=== PATIENT | male | born 1945 | race Caucasian/White ===

== ENCOUNTER 2018-04-07 14:50 | Emergency (ER) | payer MEDICARE, SELFPAY ==
[2018-04-07 14:56] VITALS: BP 129/70; PULSE 89; RESP 20; TEMP 37.5; O2SAT 94
--- NOTE | 2018-04-07 15:19 | DI.RAD_ITS ---
SYMPTOMS/DIAGNOSIS: SHORTNESS OF BREATH, ? ACUTE DISEASE PA AND LATERAL CHEST: The lungs are free of infiltrate. There is no pleural effusion. The cardiovascular structures are intact. SUMMARY: No evidence of acute cardiopulmonary disease.
--- NOTE | 2018-04-07 17:20 | W.ED.GENAD ---
Discharge Plan Disposition Patient Disposition: HOME Condition: Stable Discharge Details Chief Complaint: RespSymp Clinical Impression: Acute bronchitis, Viral conjunctivitis Primary Care Provider: [place], [place] ED Provider: Shruthi Moss Home Meds and New Rx's Prescriptions: New prednisone 20 mg tablet 20 mg PO DIRECTED Qty: 12 RF: 0 doxycycline hyclate 100 mg tablet 100 mg PO BID 5 Days Qty: 10 RF: 0 Continued aspirin [Aspir-81] 81 MG tablet,delayed release (DR/EC) 81 mg PO HS RF: 0 trazodone 50 MG tablet 50 mg PO DAILY RF: 0 omeprazole 20 MG capsule,delayed release(DR/EC) 40 mg PO DAILY RF: 0 ipratropium-albuterol 3 ML solution for nebulization 1 inh Inhalation Q4H PRN PRNRF: 0 ipratropium-albuterol [Combivent Respimat] 120 PUFF mist 2 inh Inhalation Q4H PRN PRNRF: 0 losartan 50 MG tablet 100 mg PO DAILY Qty: 0 RF: 0 warfarin [Coumadin] 2 MG tablet 2 mg PO DIRECTED RF: 0 metoprolol succinate 100 MG tablet extended release 24 hr 100 mg PO DAILY RF: 0 diltiazem HCl 240 MG capsule,extended release 24hr 600 mg PO DAILY RF: 0 prednisone 20 MG tablet 60 mg PO DAILY 4 Days RF: 0 levofloxacin 750 MG tablet 750 mg PO DAILY Qty: 4 RF: 0 Discharge Instructions Instructions: Acute Bronchitis (ED), Conjunctivitis (ED) Additional Instructions: Use your ipratropium inhaler and nebulizers as directed. Take the steroids until finished. Follow-up with your primary care doctor in 1 week for recheck of your INR and for reevaluation. Return immediately to the emergency department any worsening or new concerning symptoms. Discharge Data Discharge Physician: Shruthi Moss Medical Decision Making 72yo M with a history of A. fib on Coumadin, asthma, COPD, diabetes, hypertension and IN who presents with sore throat, hoarse voice, cough with kelley and brown sputum, shortness of breath and chest congestion for the past few days. Patient states the chest congestion is bothering him the most. He denies any fevers. Chest x-ray ordered on arrival and negative. Upon my evaluation, patient appears nontoxic and in no acute distress. He is speaking in full sentences. He states that shortness of breath is much improved. O2 sat 94% on room air on arrival. He quit smoking 30 years ago. Will check PT/INR as patient is on Coumadin. Will give an albuterol neb treatment, p.o. steroids as well as check an EKG due to patient's age and history. Patient states he feels like his symptoms are all due to bronchitis and denies any specific chest pain and states is more congestion. He declines any additional workup any other additional labs. INR 1.8. EKG notes a rate of 83 in A. fib but no acute ST findings. Patient feels like he is breathing better after neb treatment but feels little shaky. Patient states he can usually not take albuterol due to side effects. Patient states he takes ipratropium inhaler and solution at home. Will send home with prescription for steroids. Patient also complained of bilateral eye tearing, clear discharge and irritation in eyes. No evidence of bacterial conjunctivitis. Appears consistent with likely viral conjunctivitis. Patient states he has an eye doctor he can follow-up with. Patient advised that his symptoms may be viral in nature including his conjunctivitis and respiratory symptoms. Although no evidence of pneumonia on x-ray, will send home with antibiotics if symptoms do not improve or worsen. He is instructed to follow-up with his primary care doctor for recheck of his INR this week and for reevaluation. He is instructed return here at any time if worse. Medical Records Medical records reviewed: Yes I reviewed the patient's medical records. Lab Data Lab results reviewed: Yes I reviewed the patient's lab results. Laboratory Tests Range/Units 04/07/18 17:25 PT (9.3-11.0) sec 18.2 H INR (0.9-1.1) 1.8 H ECG Data Attestation: I personally reviewed and interpreted this ECG (s) as follows: Interpretation: 1733 -- 83 bpm. Afib. T wave inversion in V6 which is been seen in previous. No acute ST elevation or depression. QTc 442. QRS 102. HPI General Mode of arrival: ambulatory. Date/Time Provider Initiated Documentation: 04/07/18 15:17. Limitations to Documentation: no limitations. Information obtained by: patient. HPI Narrative: Patient is a 72-year-old male with history of atrial fibrillation on Coumadin, asthma, COPD, diabetes, GERD, hypertension and IN with history of 3 cardiac stents who presents to the ED with complaint of sore throat, hoarse voice, dry itchy cough for the past few days. Admits to kelley and brown sputum, chest congestion. States he has been drinking but eating less due to decreased appetite and worsening cough with eating. He also admits to sore throat. He denies fever or leg swelling. He smoked for 30 years but quit smoking 30 years ago. He states his last INR was checked 2 weeks ago was 2.3. States his main complaint is the tickle in chest and chest congestion. Related Data Home Medications Medication Instructions Recorded Confirmed aspirin [Aspir-81] 81 mg PO HS 12/08/12 05/25/17 omeprazole 40 mg PO DAILY 12/08/12 05/25/17 trazodone 50 mg PO DAILY 12/08/12 05/25/17 ipratropium-albuterol 1 inh INHALATION Q4H PRN PRN 03/17/14 05/25/17 ipratropium-albuterol [Combivent 2 inh INHALATION Q4H PRN PRN 03/17/14 05/25/17 Respimat] losartan 100 mg PO DAILY #0 03/18/14 05/25/17 warfarin [Coumadin] 2 mg PO DIRECTED 01/03/17 05/25/17 diltiazem HCl 600 mg PO DAILY 05/25/17 05/25/17 levofloxacin 750 mg PO DAILY #4 tablet 05/25/17 metoprolol succinate 100 mg PO DAILY 05/25/17 05/25/17 prednisone 60 mg PO DAILY 4 Days tab 05/25/17 doxycycline hyclate 100 mg PO BID 5 Days #10 tab 04/07/18 prednisone 20 mg PO DIRECTED #12 tab 04/07/18 Previous Rx's Medication Instructions Recorded losartan 100 mg PO DAILY #0 03/18/14 levofloxacin 750 mg PO DAILY #4 tablet 05/25/17 prednisone 60 mg PO DAILY 4 Days tab 05/25/17 doxycycline hyclate 100 mg PO BID 5 Days #10 tab 04/07/18 prednisone 20 mg PO DIRECTED #12 tab 04/07/18 Allergies Allergy/AdvReac Type Severity Reaction Status Date / Time No Known Allergies Allergy Unverified 05/25/17 18:54 General Stated Complaint: RespSymp ABHILASH: 4 Review of Systems Review of Systems All systems reviewed & are unremarkable except as noted in HPI and below Constitutional Reports as per HPI, Denies chills and Denies fever(s) Eyes Denies blurry vision ENT Denies dizziness, Reports sore throat and Denies throat swelling Cardiovascular Denies chest pain and Reports dyspnea Respiratory Reports dyspnea Gastrointestinal Denies abdominal pain, Denies diarrhea and Denies vomiting Genitourinary Denies hematuria and Denies dysuria Musculoskeletal Denies back pain and Denies numbness Integumentary/Breasts Denies lesions and Denies rash Neurologic Denies dizziness and Denies numbness Allergic/Immunologic Denies throat swelling [facility] Medical History Asthma (Chronic) Atrial fibrillation (Chronic) CHF (congestive heart failure) (Chronic) COPD (chronic obstructive pulmonary disease) (Chronic) Diabetes (Chronic) GERD (gastroesophageal reflux disease) (Chronic) HTN (hypertension) (Chronic) Myocardial infarction (Chronic) Surgical History History of carpal tunnel release (Acute) History of coronary artery stent placement (Chronic) Social History Smoking/Tobacco Use Status: Former Tobacco Use alcohol intake: never substance use type: does not use Exam Const General: cooperative and healthy appearing Orientation: alert and awake [facility] Head: normal to inspection Ears: hearing grossly normal bilaterally, external ears normal and TM's normal bilaterally General nose exam: external nose normal Face and sinus: normal facial exam Mouth: oral mucosae normal Teeth and gingiva: dentition normal Throat: posterior oropharynx normal, uvula midline and no uvular edema Eyes General: appearance normal, both eyes and all related structures Eyelids: eyelids normal EOM: EOM intact bilaterally Neck Neck: normal visual inspection Lymphatic: no lymphadenopathy noted Chest Chest: normal inspection of the chest Resp Effort & Inspection: normal respiratory effort and able to speak in complete sentences Auscultation: diminished lung sounds bilaterally Cardio Rate: regular rate Rhythm: regular rhythm GI Inspection: normal to inspection Palpation: soft, not firm, no guarding, no hepatosplenomegaly, no masses and nontender Auscultation: normal bowel sounds Skin General skin exam: no rashes or lesions noted Neuro General: alert and awake Cognition: normal cognition Speech: speech normal Gait: normal gait Motor: muscle tone normal throughout Sensory Exam: no sensory deficits noted Extrem General: normal to inspection, full ROM, normal capillary refill and no edema Psych Appearance: grossly normal Mental Status: mental status grossly normal Speech and Movement: speech and movement normal Affect: normal affect Thought Process: normal Course Vital Signs Temperature 99.5 F 04/07/18 14:56 Pulse 89 04/07/18 14:56 Respiratory Rate 20 04/07/18 14:56 Blood Pressure 129/70 04/07/18 14:56 Pulse Oximetry 94 L 04/07/18 14:56 Temperature 99.5 F 04/07/18 14:56 Temperature Source Temporal Artery Scan 04/07/18 14:56 Pulse 89 04/07/18 14:56 Respiratory Rate 20 04/07/18 14:56 Respiratory Effort Non-Labored 04/07/18 14:58 Blood Pressure 129/70 04/07/18 14:56 Blood Pressure Position Sitting 04/07/18 14:56 Pulse Oximetry 94 L 04/07/18 14:56 Oxygen Delivery Method Room Air 04/07/18 14:56 Oxygen Flow Rate 0 04/07/18 14:56 Pain Level 0 04/07/18 14:56 Comment 04/07/18 14:56
[2018-04-07] MEDS: predniSONE 20 MG TAB 60 MG PO (17:27)
[2018-04-07] MEDS: Albuterol/Ipratropium 3 ML UPD VIAL UPD (17:27)
--- NOTE | 2018-04-07 17:29 | ED.GENADUL_ITS ---
Discharge Plan Disposition Patient Disposition: HOME Condition: Stable Discharge Details Chief Complaint: RespSymp Clinical Impression: Acute bronchitis, Viral conjunctivitis Primary Care Provider: [place], [place] ED Provider: Shruthi Moss Home Meds and New Rx's Prescriptions: New prednisone 20 mg tablet 20 mg PO DIRECTED Qty: 12 RF: 0 doxycycline hyclate 100 mg tablet 100 mg PO BID 5 Days Qty: 10 RF: 0 Continued aspirin [Aspir-81] 81 MG tablet,delayed release (DR/EC) 81 mg PO HS RF: 0 trazodone 50 MG tablet 50 mg PO DAILY RF: 0 omeprazole 20 MG capsule,delayed release(DR/EC) 40 mg PO DAILY RF: 0 ipratropium-albuterol 3 ML solution for nebulization 1 inh Inhalation Q4H PRN PRNRF: 0 ipratropium-albuterol [Combivent Respimat] 120 PUFF mist 2 inh Inhalation Q4H PRN PRNRF: 0 losartan 50 MG tablet 100 mg PO DAILY Qty: 0 RF: 0 warfarin [Coumadin] 2 MG tablet 2 mg PO DIRECTED RF: 0 metoprolol succinate 100 MG tablet extended release 24 hr 100 mg PO DAILY RF: 0 diltiazem HCl 240 MG capsule,extended release 24hr 600 mg PO DAILY RF: 0 prednisone 20 MG tablet 60 mg PO DAILY 4 Days RF: 0 levofloxacin 750 MG tablet 750 mg PO DAILY Qty: 4 RF: 0 Discharge Instructions Instructions: Acute Bronchitis (ED), Conjunctivitis (ED) Additional Instructions: Use your ipratropium inhaler and nebulizers as directed. Take the steroids until finished. Follow-up with your primary care doctor in 1 week for recheck of your INR and for reevaluation. Return immediately to the emergency department any worsening or new concerning symptoms. Discharge Data Discharge Physician: Shruthi Moss Medical Decision Making 72yo M with a history of A. fib on Coumadin, asthma, COPD, diabetes, hypertension and MS who presents with sore throat, hoarse voice, cough with kelley and brown sputum, shortness of breath and chest congestion for the past few days. Patient states the chest congestion is bothering him the most. He denies any fevers. Chest x-ray ordered on arrival and negative. Upon my evaluation, patient appears nontoxic and in no acute distress. He is speaking in full sentences. He states that shortness of breath is much improved. O2 sat 94% on room air on arrival. He quit smoking 30 years ago. Will check PT/INR as patient is on Coumadin. Will give an albuterol neb treatment, p.o. steroids as well as check an EKG due to patient's age and history. Patient states he feels like his symptoms are all due to bronchitis and denies any specific chest pain and states is more congestion. He declines any additional workup any other additional labs. INR 1.8. EKG notes a rate of 83 in A. fib but no acute ST findings. Patient feels like he is breathing better after neb treatment but feels little shaky. Patient states he can usually not take albuterol due to side effects. Patient states he takes ipratropium inhaler and solution at home. Will send home with prescription for steroids. Patient also complained of bilateral eye tearing, clear discharge and irritation in eyes. No evidence of bacterial conjunctivitis. Appears consistent with likely viral conjunctivitis. Patient states he has an eye doctor he can follow-up with. Patient advised that his symptoms may be viral in nature including his conjunctivitis and respiratory symptoms. Although no evidence of pneumonia on x-ray, will send home with antibiotics if symptoms do not improve or worsen. He is instructed to follow-up with his primary care doctor for recheck of his INR this week and for reevaluation. He is instructed return here at any time if worse. Medical Records Medical records reviewed: Yes I reviewed the patient's medical records. Lab Data Lab results reviewed: Yes I reviewed the patient's lab results. Laboratory Tests Range/Units 04/07/18 17:25 PT (9.3-11.0) sec 18.2 H INR (0.9-1.1) 1.8 H ECG Data Attestation: I personally reviewed and interpreted this ECG (s) as follows: Interpretation: 1733 -- 83 bpm. Afib. T wave inversion in V6 which is been seen in previous. No acute ST elevation or depression. QTc 442. QRS 102. HPI General Mode of arrival: ambulatory . Date/Time Provider Initiated Documentation: 04/07/18 15:17 . Limitations to Documentation: no limitations . Information obtained by: patient . HPI Narrative: Patient is a 72-year-old male with history of atrial fibrillation on Coumadin, asthma, COPD, diabetes, GERD, hypertension and MS with history of 3 cardiac stents who presents to the ED with complaint of sore throat, hoarse voice, dry itchy cough for the past few days. Admits to kelley and brown sputum, chest congestion. States he has been drinking but eating less due to decreased appetite and worsening cough with eating. He also admits to sore throat. He denies fever or leg swelling. He smoked for 30 years but quit smoking 30 years ago. He states his last INR was checked 2 weeks ago was 2.3. States his main complaint is the tickle in chest and chest congestion. Related Data Home Medications Medication Instructions Recorded Confirmed aspirin [Aspir-81] 81 mg PO HS 12/08/12 05/25/17 omeprazole 40 mg PO DAILY 12/08/12 05/25/17 trazodone 50 mg PO DAILY 12/08/12 05/25/17 ipratropium-albuterol 1 inh INHALATION Q4H PRN PRN 03/17/14 05/25/17 ipratropium-albuterol [Combivent 2 inh INHALATION Q4H PRN PRN 03/17/14 05/25/17 Respimat] losartan 100 mg PO DAILY #0 03/18/14 05/25/17 warfarin [Coumadin] 2 mg PO DIRECTED 01/03/17 05/25/17 diltiazem HCl 600 mg PO DAILY 05/25/17 05/25/17 levofloxacin 750 mg PO DAILY #4 tablet 05/25/17 metoprolol succinate 100 mg PO DAILY 05/25/17 05/25/17 prednisone 60 mg PO DAILY 4 Days tab 05/25/17 doxycycline hyclate 100 mg PO BID 5 Days #10 tab 04/07/18 prednisone 20 mg PO DIRECTED #12 tab 04/07/18 Previous Rx's Medication Instructions Recorded losartan 100 mg PO DAILY #0 03/18/14 levofloxacin 750 mg PO DAILY #4 tablet 05/25/17 prednisone 60 mg PO DAILY 4 Days tab 05/25/17 doxycycline hyclate 100 mg PO BID 5 Days #10 tab 04/07/18 prednisone 20 mg PO DIRECTED #12 tab 04/07/18 Allergies Allergy/AdvReac Type Severity Reaction Status Date / Time No Known Allergies Allergy Unverified 05/25/17 18:54 General Stated Complaint: RespSymp ABHILASH: 4 Review of Systems Review of Systems All systems reviewed & are unremarkable except as noted in HPI and below Constitutional Reports as per HPI, Denies chills and Denies fever(s) Eyes Denies blurry vision ENT Denies dizziness, Reports sore throat and Denies throat swelling Cardiovascular Denies chest pain and Reports dyspnea Respiratory Reports dyspnea Gastrointestinal Denies abdominal pain, Denies diarrhea and Denies vomiting Genitourinary Denies hematuria and Denies dysuria Musculoskeletal Denies back pain and Denies numbness Integumentary/Breasts Denies lesions and Denies rash Neurologic Denies dizziness and Denies numbness Allergic/Immunologic Denies throat swelling [facility] Medical History Asthma (Chronic) Atrial fibrillation (Chronic) CHF (congestive heart failure) (Chronic) COPD (chronic obstructive pulmonary disease) (Chronic) Diabetes (Chronic) GERD (gastroesophageal reflux disease) (Chronic) HTN (hypertension) (Chronic) Myocardial infarction (Chronic) Surgical History History of carpal tunnel release (Acute) History of coronary artery stent placement (Chronic) Social History Smoking/Tobacco Use Status: Former Tobacco Use alcohol intake: never substance use type: does not use Exam Const General: cooperative and healthy appearing Orientation: alert and awake [facility] Head: normal to inspection Ears: hearing grossly normal bilaterally, external ears normal and TM's normal bilaterally General nose exam: external nose normal Face and sinus: normal facial exam Mouth: oral mucosae normal Teeth and gingiva: dentition normal Throat: posterior oropharynx normal, uvula midline and no uvular edema Eyes General: appearance normal, both eyes and all related structures Eyelids: eyelids normal EOM: EOM intact bilaterally Neck Neck: normal visual inspection Lymphatic: no lymphadenopathy noted Chest Chest: normal inspection of the chest Resp Effort & Inspection: normal respiratory effort and able to speak in complete sentences Auscultation: diminished lung sounds bilaterally Cardio Rate: regular rate Rhythm: regular rhythm GI Inspection: normal to inspection Palpation: soft, not firm, no guarding, no hepatosplenomegaly, no masses and nontender Auscultation: normal bowel sounds Skin General skin exam: no rashes or lesions noted Neuro General: alert and awake Cognition: normal cognition Speech: speech normal Gait: normal gait Motor: muscle tone normal throughout Sensory Exam: no sensory deficits noted Extrem General: normal to inspection, full ROM, normal capillary refill and no edema Psych Appearance: grossly normal Mental Status: mental status grossly normal Speech and Movement: speech and movement normal Affect: normal affect Thought Process: normal Course Vital Signs Temperature 99.5 F 04/07/18 14:56 Pulse 89 04/07/18 14:56 Respiratory Rate 20 04/07/18 14:56 Blood Pressure 129/70 04/07/18 14:56 Pulse Oximetry 94 L 04/07/18 14:56 Temperature 99.5 F 04/07/18 14:56 Temperature Source Temporal Artery Scan 04/07/18 14:56 Pulse 89 04/07/18 14:56 Respiratory Rate 20 04/07/18 14:56 Respiratory Effort Non-Labored 04/07/18 14:58 Blood Pressure 129/70 04/07/18 14:56 Blood Pressure Position Sitting 04/07/18 14:56 Pulse Oximetry 94 L 04/07/18 14:56 Oxygen Delivery Method Room Air 04/07/18 14:56 Oxygen Flow Rate 0 04/07/18 14:56 Pain Level 0 04/07/18 14:56 Comment 04/07/18 14:56
[2018-04-07 18:03] LABS: INR 1.8 (0.9-1.1); Prothrombin Time 18.2 sec (9.3-11.0)
[2018-04-07 19:16] VITALS: BP 129/70; PULSE 89; RESP 20; TEMP 37.5; O2SAT 94
== END 2018-04-07 19:16 | disposition home or self-care (01) ==
PROVIDERS: Emergency Provider Physician Assistant
DX: J20.9 Acute bronchitis, unspecified (principal); J02.9 Acute pharyngitis, unspecified; I48.91 Unspecified atrial fibrillation; Z79.01 Long term (current) use of anticoagulants; J44.9 Chronic obstructive pulmonary disease, unspecified; Z87.891 Personal history of nicotine dependence; E11.9 Type 2 diabetes mellitus without complications; I10 Essential (primary) hypertension
CPT/HCPCS: 36415; 93005; 94640; 99284; 71046; 85610; 93010; 99285; J7512; J7620

== ENCOUNTER 2018-11-07 15:30 | Emergency (ER) | payer OTHER, MEDICARE, SELFPAY ==
[2018-11-07 15:32] VITALS: BP 150/77; PULSE 58; RESP 16; TEMP 36.3; O2SAT 98
--- NOTE | 2018-11-07 16:02 | DI.RAD_ITS ---
SYMPTOM/DIAGNOSIS: NEW INJURY VOLAR LEFT THUMB: Gauze is seen over the distal phalanx. No fracture or foreign body is identified.
--- NOTE | 2018-11-07 16:04 | W.ED.GENAD ---
Discharge Plan Disposition Patient Disposition: HOME Condition: Improving Discharge Details Chief Complaint: Laceration Clinical Impression: Laceration of left thumb Primary Care Provider: [facility] ED Provider: Randy Arellano Home Meds and New Rx's Prescriptions: Continued aspirin [Aspir-81] 81 MG tablet,delayed release (DR/EC) 81 mg PO HS RF: 0 trazodone 50 MG tablet 50 mg PO DAILY RF: 0 omeprazole 20 MG capsule,delayed release(DR/EC) 40 mg PO DAILY RF: 0 ipratropium-albuterol 3 ML solution for nebulization 1 inh Inhalation Q4H PRN PRNRF: 0 Combivent Respimat 120 PUFF mist 2 inh Inhalation Q4H PRN PRNRF: 0 losartan 50 MG tablet 100 mg PO DAILY Qty: 0 RF: 0 warfarin [Coumadin] 2 MG tablet 2 mg PO DIRECTED RF: 0 metoprolol succinate 100 MG tablet extended release 24 hr 100 mg PO DAILY RF: 0 diltiazem HCl 240 MG capsule,extended release 24hr 600 mg PO DAILY RF: 0 Discharge Instructions Instructions: Laceration (ED) Additional Instructions: We have asked our care management team to get you a follow-up appointment at the NH for 10 days time for both wound check and suture removal. Leave current dressing in place 72 hours, then may do gentle soap and water, pat dry, replace dressing. Continue regular medications. Return if you develop fever, redness, discharge from the wound or any other acute concerns. Medical Decision Making 72-year-old male who is right-handed, cut his left thumb on the volar surface using a table saw. His distal two-point discrimination is intact and motor function is within normal limits. Referred for x-ray to rule out foreign body or underlying bony injury. Tetanus status per NH is last 2010 and updated today. X-ray without evidence of acute injury or foreign body. The wound is not amenable to significant skin closure but sutures placed to improve wound edge apposition. 3 sutures placed. Patient wrapped in Xeroform gauze, [facility] and may follow-up in clinic, we will ask care management to assist in follow-up appointment in approximately 10 days for suture removal and wound check. HPI General Mode of arrival: ambulatory. Date/Time Provider Initiated Documentation: 11/07/18 15:37. Limitations to Documentation: no limitations. Information obtained by: patient. History of Present Illness 72 year old M presents to the emergency department with the chief complaint of Left hand injury with table saw, described as moderate, Quality is described as dull, and is localized to the left and upper extremity. Patient reports no radiation. Patient started experiencing this minute(s) and it has been constant. No relieving factors improve symptom(s), No exacerbating factors reported . Patient did receive the following treatments prior to arrival, none Related Data Home Medications Medication Instructions Recorded Confirmed aspirin [Aspir-81] 81 mg PO HS 12/08/12 11/07/18 omeprazole 40 mg PO DAILY 12/08/12 11/07/18 trazodone 50 mg PO DAILY 12/08/12 11/07/18 Combivent Respimat 2 inh INHALATION Q4H PRN PRN 03/17/14 11/07/18 ipratropium-albuterol 1 inh INHALATION Q4H PRN PRN 03/17/14 11/07/18 losartan 100 mg PO DAILY #0 03/18/14 11/07/18 warfarin [Coumadin] 2 mg PO DIRECTED 01/03/17 11/07/18 diltiazem HCl 600 mg PO DAILY 05/25/17 11/07/18 metoprolol succinate 100 mg PO DAILY 05/25/17 11/07/18 Previous Rx's Medication Instructions Recorded losartan 100 mg PO DAILY #0 03/18/14 Allergies Allergy/AdvReac Type Severity Reaction Status Date / Time iodine Allergy Mild Unverified 11/07/18 15:34 General Stated Complaint: Laceration ABHILASH: 4 Review of Systems Review of Systems Unsure of tetanus. No numbness or tingling. No weakness. No other injury. Recently well. 6 systems reviewed and otherwise negative [facility] Medical History Asthma (Chronic) Atrial fibrillation (Chronic) CHF (congestive heart failure) (Chronic) COPD (chronic obstructive pulmonary disease) (Chronic) Diabetes (Chronic) GERD (gastroesophageal reflux disease) (Chronic) HTN (hypertension) (Chronic) Myocardial infarction (Chronic) Surgical History History of carpal tunnel release (Acute) History of coronary artery stent placement (Chronic) Social History Smoking/Tobacco Use Status: Former Tobacco Use Alcohol Intake: never Drug use: Never Substance use type: does not use Do you feel safe in your relationship?: Yes Exam Narrative Exam Narrative: GEN: awake, alert, oriented 3. Pleasant, well groomed, interactive. HEAD: Normocephalic, atraumatic ENT: Mucous membranes moist, oropharynx unremarkable, External ear exam unremarkable EYES: PERRL, EOMI EXT: Full ROM, no edema, no rash. The volar aspect of the left distal thumb has an deep abrasion measuring approximately 1 x 3 cm. The edges are ragged but intact. The distal portion of the thumb volar surface is intact with two-point discrimination intact at approximately 8 mm. Thumb apposition flexion and extension are all within normal limits. Neuro: Grossly normal neurologic exam, conversant, interactive. Psych: Speech fluent, thoughts congruent, affect normal Course Vital Signs Temperature 36.3 C L 11/07/18 15:32 Pulse 58 L 11/07/18 15:32 Respiratory Rate 16 11/07/18 15:32 Blood Pressure 150/77 H 11/07/18 15:32 Pulse Oximetry 98 11/07/18 15:32 Temperature 36.3 C L 11/07/18 15:32 Temperature Source Skin 11/07/18 15:32 Pulse 58 L 11/07/18 15:32 Respiratory Rate 16 11/07/18 15:32 Blood Pressure 150/77 H 11/07/18 15:32 Blood Pressure Position Sitting 11/07/18 15:32 Pulse Oximetry 98 11/07/18 15:32 Procedures Laceration Laceration 1: Site: hand Side (If applicable): left Size (cm): 3 Description: irregular Depth: simple, single layer Local Anesthetic: Lidocaine 1% Pre-repair: wound explored and irrigated extensively Skin layer closed with: nylon Size (cm): 4-0 Number of sutures: 3 Technique: simple, interrupted
--- NOTE | 2018-11-07 16:27 | DI.VRAD_ITS ---
EXAM: XR Left Finger(s) EXAM DATE/TIME: 11/07/2018 4:03 PM CLINICAL HISTORY: 72 years old, male; Other: Saw injury volar TECHNIQUE: Imaging protocol: XR Left fingers. Views: Minimum 2 views. COMPARISON: No relevant prior studies available. FINDINGS: Bones/joints: Normal. Soft tissues: Normal. IMPRESSION: No acute findings. Dictated and Authenticated by: Byron Lewis MD. Ordering:GRETA Padilla MD
== END 2018-11-07 16:48 | disposition home or self-care (01) ==
LOC: ER 16:52
PROVIDERS: Emergency Provider Emergency Medicine
DX: S61.012A Laceration without foreign body of left thumb without damage to nail, initial encounter (principal); W31.2XXA Contact with powered woodworking and forming machines, initial encounter
CPT/HCPCS: 12002; 90471; 99283; 73140

== ENCOUNTER 2019-01-12 13:20 | Observation (INO) | payer OTHER, SELFPAY ==
[2019-01-12] VITALS (58 sets, daily range): BP systolic 110–154; BP diastolic 62–100; PULSE 37–78; RESP 10–26; TEMP 36.7–37; O2SAT 92–97
--- NOTE | 2019-01-12 13:43 | DI.RAD_ITS ---
EXAM: XR PORTABLE CHEST AP INDICATION: bradycardia, dizzy, r/o acute disease. COMPARISON: XR CHEST 2V PA LATERAL from 04/07/2018 TECHNIQUE: 2D digital imaging was performed. FINDINGS: The heart size is normal. Leads overlie the chest. There are linear areas of scarring or atelectas is seen in the lower lung kay. No pneumothorax, infiltrate or effusion is seen IMPRESSION: No acute abnormality.
--- NOTE | 2019-01-12 13:51 | ED.GENADUL_ITS ---
Discharge Plan Disposition Patient Disposition: [facility] INPATIENT Condition: Stable Discharge Details Chief Complaint: SOB Clinical Impression: Symptomatic bradycardia, History of atrial fibrillation Admit Date/Time: 01/12/19 15:23 Admit Provider: Triston Oden Attending Provider: Triston Oden Primary Care Provider: Yosvany Trejo ED Provider: Shruthi Moss Medical Decision Making 1330 -- 73yo M w/ a history of atrial fibrillation on Coumadin, COPD, CHF, GERD, diabetes, obesity, hypertension hyperlipidemia presents with shortness of breath, shakiness and dizziness for the past 3 weeks, worse today with exertion. Heart rate 30s to 40s on arrival. Pacer pads placed. BP within normal limits at 133/81. Patient denies any dizziness at present or any chest pain. He does admit to some shortness of breath. O2 sat 92% on room air, afebrile. Patient appears comfortable and in no acute respiratory distress. EKG on arrival notes a rate of 42, A. fib. There appears to be some P waves noticeable which raises concern for possible second or third-degree block, however fibrillatory waves make the presentation unclear. Heart rate noted to be in the occasional low 30s during my evaluation the patient appeared comfortable and in no acute distress. BP has remained stable. Concern for heart block/symptomatic bradycardia. Will call [facility] cardiology for consult likely transfer. Patient is followed at the [facility] as well so will call them for recommendations whether patient can go to other facilities for admission or transfer. 1410 -- d/w [facility] cardiology -agrees that the EKG is hard to interpret at this time as it could be A. fib at a slower rate. But considering patient likely needs to be on the diltiazem and metoprolol based on his cardiac disease, he may be appropriate for a pacemaker. Unfortunately they have no beds avail able now. Recommends calling house assembler convertible top here Dr. Sheldon for further discussion and possible admission. 1430 -- labs and imaging reviewed and unremarkable. INR 2.7. D-dimer 545 which is negative per age-adjusted cut off. Troponin negative. BNP 861. Chest x-ray negative. Discussed with the [facility] who stated that patient can likely be admitted anywhere as he is Medicare and be. They state they have no beds available and they do not place pacemakers at their facility. Awaiting callback from Dr. Sheldon. 1500 -- Case discussed with Dr. Sheldon - could be slow afib or tachy-ester syndrome. Agrees with plan for admission and can start with adjusting his medications but may need a pacemaker at some point. He could stay here but agrees with attempting [facility] for transfer. 1510 -- Case discussed with [facility] cardiology -no beds available. They do accept patient for transfer in the a.m. after reevaluation and discussion -accepting physician Dr. Carrion. 1515 -- Case discussed with hospitalist who accepts patient for admission. Medical Records Medical records reviewed: Yes I reviewed the patient's medical records. Imaging Data Radiologic Study: Radiologist's impression: XR PORTABLE CHEST AP INDICATION: bradycardia, dizzy, r/o acute disease. COMPARISON: XR CHEST 2V PA LATERAL from 04/07/2018 TECHNIQUE: 2D digital imaging was performed. FINDINGS: The heart size is normal. Leads overlie the chest. There are linear areas of scarring or atelectasis seen in the lower lung kay. No pneumothorax, infiltrate or effusion is seen IMPRESSION: No acute abnormality. Lab Data Lab results reviewed: Yes I reviewed the patient's lab results. Labs: Laboratory Tests Range/Units 01/12/19 01/12/19 01/12/19 13:31 13:31 13:31 WBC (4.4-10.8) k/cumm 9.13 RBC (4.50-6.00) m/cumm 4.84 Hgb (13.5-17.5) g/dL 14.4 Hct (40.0-50.0) % 43.3 MCV (80-95) fL 89.5 MCH (27.0-33.0) pg 29.8 MCHC (32.0-36.0) g/dL 33.3 RDW (11.8-14.1) % 13.6 Plt Count (130-400) x1000/uL 270 MPV (8.0-11.0) fL 10.7 Immature Gran % 0.3 Neutrophils % 72.8 Lymphocytes % 15.4 Monocytes % 9.7 Eosinophils % 1.6 Basophils % 0.2 Absolute Neutrophils (1.2-6.7) k/cumm 6.63 Absolute Lymphocytes (1.2-3.4) k/cumm 1.41 Absolute Monocytes (0.11-0.7) k/cumm 0.89 H Absolute Eosinophils (0.0-0.7) k/cumm 0.15 Absolute Basophils (0.0-0.2) k/cumm 0.02 PT (9.3-11.0) sec 26.5 H INR (0.9-1.1) 2.7 H APTT (21.0-31.4) sec 35.0 H D-Dimer (<500) ng/mlFEU 545 H Sodium (136-145) mmol/L 142 Potassium (3.5-5.1) mmol/L 4.6 Chloride (98-107) mmol/L 107 Carbon Dioxide (21.0-32.0) mmol/L 24.0 Anion Gap (3-11) mmol/L 11.0 BUN (7-18) mg/dL 26 H Creatinine (0.70-1.30) mg/dL 1.16 Estimated GFR/1.73 m2 (mL/min/1.73m2) >= 60.00 Glucose (70-100) mg/dL 164 H Calcium (8.5-10.1) mg/dL 9.0 Magnesium (1.8-2.4) mg/dL 1.9 Total Bilirubin (0.2-1.0) mg/dL 0.8 AST (15-37) U/L 18 ALT (16-63) U/L 37 Alkaline Phosphatase (46-116) U/L 80 Troponin I (0.00-0.06) ng/mL < 0.05 NT-Pro-B Natriuret Pep ( - 299) pg/mL Total Protein (6.4-8.2) g/dL 7.1 Albumin (3.4-5.0) g/dL 4.0 Range/Units 01/12/19 01/12/19 13:32 15:25 WBC (4.4-10.8) k/cumm RBC (4.50-6.00) m/cumm Hgb (13.5-17.5) g/dL Hct (40.0-50.0) % MCV (80-95) fL MCH (27.0-33.0) pg MCHC (32.0-36.0) g/dL RDW (11.8-14.1) % Plt Count (130-400) x1000/uL MPV (8.0-11.0) fL Immature Gran % Neutrophils % Lymphocytes % Monocytes % Eosinophils % Basophils % Absolute Neutrophils (1.2-6.7) k/cumm Absolute Lymphocytes (1.2-3.4) k/cumm Absolute Monocytes (0.11-0.7) k/cumm Absolute Eosinophils (0.0-0.7) k/cumm Absolute Basophils (0.0-0.2) k/cumm PT (9.3-11.0) sec Cancelled INR (0.9-1.1) Cancelled APTT (21.0-31.4) sec D-Dimer (<500) ng/mlFEU Sodium (136-145) mmol/L Potassium (3.5-5.1) mmol/L Chloride (98-107) mmol/L Carbon Dioxide (21.0-32.0) mmol/L Anion Gap (3-11) mmol/L BUN (7-18) mg/dL Creatinine (0.70-1.30) mg/dL Estimated GFR/1.73 m2 (mL/min/1.73m2) Glucose (70-100) mg/dL Calcium (8.5-10.1) mg/dL Magnesium (1.8-2.4) mg/dL Total Bilirubin (0.2-1.0) mg/dL AST (15-37) U/L ALT (16-63) U/L Alkaline Phosphatase (46-116) U/L Troponin I (0.00-0.06) ng/mL NT-Pro-B Natriuret Pep ( - 299) pg/mL 861 H Total Protein (6.4-8.2) g/dL Albumin (3.4-5.0) g/dL ECG Data Attestation: I personally reviewed and interpreted this ECG (s) as follows: Interpretation: Rate of 42, A. fib, some P waves noted mixed in with fibrillatory waves unclear if this is a second or third-degree block. QTc 354. QRS 100. No acute ST ischemic changes. HPI General Mode of arrival: ambulatory . Date/Time Provider Initiated Documentation: 01/12/19 13:30 . Limitations to Documentation: no limitations . Information obtained by: patient . HPI Narrative: Patient is a 73-year-old male with a history of asthma, atrial fibrillation on Coumadin, CHF, COPD, GERD, hypertension, SD and cardiac stent placement who presents for feeling of shakiness, dizziness, shortness of breath and low heart rate today. Patient states he has had the symptoms off and on for the past 3 weeks but worse today. He states symptoms are worse when he is up and walking around. He does admit to some improvement when he is resting. He states his heart rate is normally 60s to 80s and check creatinine was low today. He denies any headache, visual changes, chest pain, abdominal pain or recent illness. He states he was started on metformin 1 month ago and recently stopped this due to feelings of dizziness. He denies any other change in any of his medications. Related Data Home Medications Medication Instructions Recorded Confirmed aspirin [Aspir-81] 81 mg PO HS 12/08/12 01/12/19 omeprazole 40 mg PO DAILY 12/08/12 11/07/18 trazodone 50 mg PO DAILY 12/08/12 01/12/19 Combivent Respimat 2 inh INHALATION Q4H PRN PRN 03/17/14 01/12/19 ipratropium-albuterol 1 inh INHALATION Q4H PRN PRN 03/17/14 01/12/19 losartan 100 mg PO DAILY #0 03/18/14 01/12/19 warfarin [Coumadin] 2 mg PO DIRECTED 01/03/17 11/07/18 diltiazem HCl 600 mg PO DAILY 05/25/17 01/12/19 metoprolol succinate 100 mg PO DAILY 05/25/17 01/12/19 Previous Rx's Medication Instructions Recorded losartan 100 mg PO DAILY #0 03/18/14 Allergies Allergy/AdvReac Type Severity Reaction Status Date / Time iodine Allergy Mild Unverified 01/12/19 13:33 General Stated Complaint: SOB ABHILASH: 2 Review of Systems All systems reviewed & are unremarkable except as noted in HPI and below Constitutional Constitutional: Reports as per HPI, Denies chills and Denies fever(s) Eyes Eyes: Denies blurry vision ENT Ears, Nose, Mouth, and Throat: Reports dizziness, Denies sore throat and Denies throat swelling Cardiovascular Cardiovascular: Denies chest pain and Reports dyspnea Respiratory Respiratory: Denies cough and Reports dyspnea Gastrointestinal Gastrointestinal: Denies abdominal pain, Denies diarrhea and Denies vomiting Genitourinary Genitourinary: Denies hematuria and Denies dysuria Musculoskeletal Musculoskeletal: Denies back pain and Denies numbness Integumentary/Breasts Skin/Breast: Denies lesions and Denies rash Neurologic Neurologic: Reports dizziness, Denies focal weakness and Denies numbness Allergic/Immunologic Allergic/Immunologic: Denies throat swelling [facility] Medical History Asthma (Chronic) Atrial fibrillation (Chronic) CHF (congestive heart failure) (Chronic) COPD (chronic obstructive pulmonary disease) (Chronic) Diabetes (Chronic) GERD (gastroesophageal reflux disease) (Chronic) HTN (hypertension) (Chronic) Myocardial infarction (Chronic) Surgical History History of carpal tunnel release (Acute) History of coronary artery stent placement (Chronic) Social History Smoking/Tobacco Use Status: Former Tobacco Use Alcohol Intake: never Drug use: Never Substance use type: does not use Do you feel safe at home: Yes Do you feel safe in your relationship?: Yes Exam Const General: cooperative, healthy appearing and no acute distress HENMT Head: normal to inspection Face and sinus: normal facial exam Eyes General: appearance normal, both eyes and all related structures Pupils: PERRL EOM: EOM intact bilaterally Neck Neck: normal visual inspection and No submandibular swelling Lymphatic: no lymphadenopathy noted Chest Chest: normal inspection of the chest and no tenderness Resp Effort & Inspection: normal respiratory effort and able to speak in complete sentences Auscultation: clear to auscultation bilaterally Cardio Rate: bradycardic Rhythm: abnormal rhythm irregularly irregular GI Inspection: normal to inspection Palpation: soft, not firm, not rigid and nontender Auscultation: normal bowel sounds Skin General skin exam: no rashes or lesions noted Neuro General: alert, awake and oriented x3 Cranial Nerves: CN's II-XI intact bilaterally Cognition: normal cognition Speech: speech normal Motor: muscle tone normal throughout and strength 5/5 throughout Sensory Exam: no sensory deficits noted Extrem General: normal to inspection, full ROM, normal capillary refill, no calf tenderness bilaterally and no edema Psych Appearance: grossly normal Mental Status: mental status grossly normal Speech and Movement: speech and movement normal Affect: normal affect Course Vital Signs Vital signs: Vital Signs Temperature 98.6 F 01/12/19 13:27 Pulse 41 L 01/12/19 13:27 Respiratory Rate 16 01/12/19 13:27 Blood Pressure 133/81 01/12/19 13:27 Pulse Oximetry 93 L 01/12/19 13:27 Temperature 98.6 F 01/12/19 13:27 Temperature Source Skin 01/12/19 13:27 Pulse 43 L 01/12/19 13:46 Pulse 41 L 01/12/19 13:46 Respiratory Rate 12 01/12/19 13:46 Respiratory Effort 01/12/19 13:40 Respiratory Depth Normal 01/12/19 13:40 Respiratory Pattern Normal 01/12/19 13:40 Blood Pressure 117/67 01/12/19 13:46 Blood Pressure Mean 79 01/12/19 13:46 Blood Pressure Position Sitting 01/12/19 13:27 Pulse Oximetry 96 01/12/19 13:46 Oxygen Delivery Method Room Air 01/12/19 13:27 Oxygen Flow Rate 0 01/12/19 13:27 Pain Level 0 01/12/19 13:27
[2019-01-12 13:58] LABS: Abs Immature Grans 0.03 k/cumm (0.0-0.09); Absolute Basophil Count 0.02 k/cumm (0.0-0.2); Absolute Eosinophil Count 0.15 k/cumm (0.0-0.7); Absolute Lymphocyte Count 1.41 k/cumm (1.2-3.4); Absolute Monocyte Count 0.89 k/cumm (0.11-0.7); Absolute Neutrophil Count 6.63 k/cumm (1.2-6.7); Basophils % 0.2; Eosinophils % 1.6; HCT 43.3 % (40.0-50.0); HGB 14.4 g/dL (13.5-17.5); Immature Grans % 0.3; Lymphocytes % 15.4; Mean Corp. HGB Concentration 33.3 g/dL (32.0-36.0); Mean Corpuscular Hemoglobin 29.8 pg (27.0-33.0); Mean Corpuscular Volume 89.5 fL (80-95); Mean Platelet Volume 10.7 fL (8.0-11.0); Monocytes % 9.7; Neutrophils % 72.8; Platelet Count 270 x1000/uL (130-400); RBC 4.84 m/cumm (4.50-6.00); RBC Distribution Width 13.6 % (11.8-14.1); White Blood Cell Count 9.13 k/cumm (4.4-10.8)
[2019-01-12 14:14] LABS: ALT 37 U/L (16-63); AST 18 U/L (15-37); Alkaline Phosphatase 80 U/L (46-116); BUN 26 mg/dL (7-18); Bilirubin, Total 0.8 mg/dL (0.2-1.0); CREATININE 1.16 mg/dL (0.70-1.30); Chloride 107 mmol/L (98-107); Glucose 164 mg/dL (70-100); Magnesium 1.9 mg/dL (1.8-2.4); Potassium 4.6 mmol/L (3.5-5.1); Sodium 142 mmol/L (136-145); Total Protein 7.1 g/dL (6.4-8.2)
[2019-01-12 14:15] LABS: Troponin I < 0.05 ng/mL (0.00-0.06)
[2019-01-12 14:17] LABS: INR 2.7 (0.9-1.1); Prothrombin Time 26.5 sec (9.3-11.0)
[2019-01-12 14:32] LABS: NT-proBNP 861 pg/mL
[2019-01-12 14:33] LABS: D-Dimer 545 ng/mlFEU (<500)
[2019-01-12] MEDS: Normal Saline 500 ML IV (14:45)
--- NOTE | 2019-01-12 17:03 | W.PM.HP.N ---
Date of service: 01/12/19 Time of Service: 17:56 Assessment and Plan Assessment and plan (1) Bradycardia: Status: Acute Assessment and plan: Hx of atrial fibrillation, with prior history of RVR. Patient very likely requires relatively high dose or combination of different nikunj agents for successful rate control, but has become significantly bradycardic on this combination of long-acting metoprolol and diltiazem. He may in fact be a candidate for PPM to avoid bradycardia, with subsequent combination beta-dequan and calcium channel dequan therapy to achieve rate control. Cardiology had been contacted and agreed with this assessment, reportedly both at [facility] and the [facility] where he is tentatively accepted pending bed availability in the morning. -For tonight will hold long-acting Cardizem, and change metoprolol succinate to short acting formulation and titrate as able. Current heart rate has already improved and is in the 50s to 70s, well in the 60s at time of examination. Plan will be for titration tomorrow, followed by obtaining an echo to assess for any structural heart disease as there is no echo results available locally. Will maintain on the sort supervisor overnight, and monitor symptoms closely. Highly doubt ACS as ECG is nonischemic, and symptoms seem to match patient's heart rate?initial troponin also negative. Regardless will rule out with serial cardiac biomarkers as well. (2) H/O: GI bleed: Status: Chronic Assessment and plan: Apparent history of GI bleed while on anticoagulation with Coumadin. Will monitor INR carefully, and continue daily PPI and H2 dequan. (3) GERD (gastroesophageal reflux disease): Status: Chronic Assessment and plan: Treatment as above. (4) Obstructive sleep apnea: Status: Chronic Assessment and plan: Continue home CPAP. (5) Type II diabetes mellitus: Status: Chronic Assessment and plan: Initiate low-dose sliding scale coverage, ADA diet. (6) CAD (coronary artery disease): Status: Chronic Assessment and plan: Hx of CAD, with reported 2 stents to the LAD in 1998, and repeat stenting in 2003. ECG appears nonischemic, on initial troponin is negative. Will rule out with serial cardiac biomarkers as above, but doubt symptoms of GONZALES and fatigue are related to ACS. Continue low-dose BB, daily aspirin, and statin therapy. (7) COPD (chronic obstructive pulmonary disease): Status: Acute Assessment and plan: Appears quiescent. Continue duo nebs as needed. (8) DVT prophylaxis: Status: Acute Assessment and plan: Continue anticoagulation and monitor INR -currently therapeutic. (9) Advance directive on file: Status: Acute Assessment and plan: DNR/DNI per discussion at time of admission. Mr. Giraldo is okay with reversal of this for any procedures, including insertion of a PPM if needed. History of Present Illness History of Present Illness Chief Complaint: Fatigue Narrative: Very pleasant 73-year-old man with past medical history significant for A. fib, being admitted from [facility] emergency department with a diagnosis of bradycardia. Mr. Giraldo has past medical history significant for A. fib with previously reported RVR. His other history includes CAD, with 2 prior stents to the LAD 1998, restented in 2003. He also carries a diagnoses of DM, HTN, obesity, GERD, history of GI bleed on AC, insomnia, NOLA on CPAP, and COPD. He is [facility] cared [facility] at the [facility]. The patient reports a somewhat lengthy history of easy fatigability, ongoing for a number of months. However he also reports that over the past few weeks he has had worsening of the symptoms, along with dyspnea on exertion, tremors, and significant fatigue with minimal activity. When he took his vitals at home he noted rather low heart rate, and contacted his caregivers at the [facility] who instructed him to present to the nearest ED for evaluation. Work-up in the ED was remarkable for significant bradycardia with HR is in the 40s range, but remarkably with maintained blood pressures. Lab work was essentially unremarkable with the exception of a mildly elevated BNP at 861, and a troponin of less than 0.05. His EKG was difficult to interpret, but ultimately deemed to be atrial fibrillation with a slow ventricular response. Stress and was at that point referred for admission for further evaluation and treatment. Review of Systems All systems reviewed & are unremarkable except as noted in HPI and below [facility] Medical History Asthma (Chronic) Atrial fibrillation (Chronic) CHF (congestive heart failure) (Chronic) COPD (chronic obstructive pulmonary disease) (Chronic) Diabetes (Chronic) GERD (gastroesophageal reflux disease) (Chronic) HTN (hypertension) (Chronic) Myocardial infarction (Chronic) Surgical History History of carpal tunnel release (Acute) History of coronary artery stent placement (Chronic) Social History Smoking/Tobacco Use Status: Former Tobacco Use Alcohol Intake: never Drug use: Never Substance use type: does not use Do you feel safe at home: Yes Do you feel safe in your relationship?: Yes Meds Home Medications and Allergies Home Medications Medication Instructions Recorded Confirmed Type aspirin [Aspir-81] 81 mg PO HS 12/08/12 01/12/19 History omeprazole 40 mg PO DAILY 12/08/12 11/07/18 History trazodone 50 mg PO DAILY 12/08/12 01/12/19 History Combivent Respimat 2 inh INHALATION Q4H PRN PRN 03/17/14 01/12/19 History ipratropium-albuterol 1 inh INHALATION Q4H PRN PRN 03/17/14 01/12/19 History losartan 100 mg PO DAILY #0 03/18/14 01/12/19 Rx warfarin [Coumadin] 2 mg PO DIRECTED 01/03/17 11/07/18 History diltiazem HCl 600 mg PO DAILY 05/25/17 01/12/19 History metoprolol succinate 100 mg PO DAILY 05/25/17 01/12/19 History Allergies Allergy/AdvReac Type Severity Reaction Status Date / Time iodine Allergy Mild Unverified 01/12/19 13:33 Exam Narrative Exam Narrative: General: Patient appears comfortable, AAOX3, NAD Neck: Supple CV: Regular, Nonbradycardic at time of exam, somewhat distant heart sounds No rubs, murmurs, or gallops. Pulmonary: Clear to auscultation bilaterally, no crackles, wheezing, or rhonchi Abdomen: + Bowel Sounds, soft, nondistended but obese in contour. slight discomfort at site of recent umbilical hernia repair Vascular: +1 pitting b/l lower extremity edema Neurologic: CN II-XII grossly intact. No focal deficits. Psych: Normal mood and affect. Results Labs Result diagrams: 01/12/19 13:31 01/12/19 13:31 Labs: Laboratory Results - last 24 hr 01/12/19 01/12/19 01/12/19 13:31 13:31 13:31 WBC 9.13 RBC 4.84 Hgb 14.4 Hct 43.3 MCV 89.5 MCH 29.8 MCHC 33.3 RDW 13.6 Plt Count 270 MPV 10.7 Immature Gran % 0.3 Neutrophils % 72.8 Lymphocytes % 15.4 Monocytes % 9.7 Eosinophils % 1.6 Basophils % 0.2 Absolute Neutrophils 6.63 Absolute Lymphocytes 1.41 Absolute Monocytes 0.89 H Absolute Eosinophils 0.15 Absolute Basophils 0.02 PT 26.5 H INR 2.7 H APTT 35.0 H D-Dimer 545 H Sodium 142 Potassium 4.6 Chloride 107 Carbon Dioxide 24.0 Anion Gap 11.0 BUN 26 H Creatinine 1.16 Estimated GFR/1.73 m2 >= 60.00 Glucose 164 H Calcium 9.0 Magnesium 1.9 Total Bilirubin 0.8 AST 18 ALT 37 Alkaline Phosphatase 80 Troponin I < 0.05 NT-Pro-B Natriuret Pep Total Protein 7.1 Albumin 4.0 01/12/19 01/12/19 13:32 15:25 WBC RBC Hgb Hct MCV MCH MCHC RDW Plt Count MPV Immature Gran % Neutrophils % Lymphocytes % Monocytes % Eosinophils % Basophils % Absolute Neutrophils Absolute Lymphocytes Absolute Monocytes Absolute Eosinophils Absolute Basophils PT Cancelled INR Cancelled APTT D-Dimer Sodium Potassium Chloride Carbon Dioxide Anion Gap BUN Creatinine Estimated GFR/1.73 m2 Glucose Calcium Magnesium Total Bilirubin AST ALT Alkaline Phosphatase Troponin I NT-Pro-B Natriuret Pep 861 H Total Protein Albumin Last Vital Signs Temp 37 C 01/12/19 13:27 Pulse 59 L 01/12/19 16:16 Resp 18 01/12/19 16:16 BP 130/81 01/12/19 16:16 Pulse Ox 97 01/12/19 16:16
[2019-01-12] MEDS: Simvastatin 40 MG TAB 80 MG PO (20:15)
[2019-01-12] MEDS: Metoprolol 25 MG TAB PO (20:15)
[2019-01-12 21:41] LABS: Troponin I < 0.05 ng/mL (0.00-0.06)
[2019-01-12] MEDS: Aspirin E.C. 81 MG TABEC PO (21:47)
[2019-01-13] VITALS (22 sets, daily range): BP systolic 139–157; BP diastolic 85–102; PULSE 57–96; RESP 1–27; TEMP 36.4–36.8; O2SAT 93–96
[2019-01-13] MEDS: Albuterol/Ipratropium 3 ML UPD VIAL IH ×3 (00:03→17:10)
[2019-01-13] MEDS: Metoprolol 25 MG TAB PO (04:00)
--- NOTE | 2019-01-13 05:17 | NUR.NOTE ---
CLarified code status with patient due to conflicting information. pt would prefer to be a FUll Code and not a DNR/DNI pt states in his own words, I would like you to do everything that you can to bring me back. continued with brief discussion about setting up advanced directives for further information in regards to selective measures if desired.
[2019-01-13 06:22] LABS: Anion Gap 7.2 mmol/L (3-11); BUN 18 mg/dL (7-18); CO2 27.8 mmol/L (21.0-32.0); CREATININE 0.94 mg/dL (0.70-1.30); Calcium 8.8 mg/dL (8.5-10.1); Chloride 107 mmol/L (98-107); Glucose 136 mg/dL (70-100); Magnesium 1.8 mg/dL (1.8-2.4); Potassium 4.3 mmol/L (3.5-5.1); Sodium 142 mmol/L (136-145)
[2019-01-13 06:25] LABS: INR 2.2 (0.9-1.1); Prothrombin Time 22.1 sec (9.3-11.0)
[2019-01-13 06:31] LABS: Troponin I < 0.05 ng/mL (0.00-0.06)
[2019-01-13] MEDS: Omeprazole 20 MG CAPCR 40 MG PO (07:45)
--- NOTE | 2019-01-13 07:50 | PDOC.CMIN ---
- If Service Date Differs Date of service: 01/13/19 Time of Service: 07:50 Care Management Initial Assess REASON FOR HOSPITALIZATION:: Bradycardia PAST MEDICAL HISTORY/PAST SURGICAL HISTORY:: Medical History . Asthma (Chronic). Atrial fibrillation (Chronic). CHF (congestive heart failure) (Chronic). COPD (chronic obstructive pulmonary disease) (Chronic). Diabetes (Chronic). GERD (gastroesophageal reflux disease) (Chronic). HTN (hypertension) (Chronic). Myocardial infarction (Chronic). Surgical History . History of carpal tunnel release (Acute). History of coronary artery stent placement (Chronic) PREVIOUS FUNCTIONAL STATUS/SOCIAL/FAMILY SUPPORTS:: Hong lives in [place] with his Zahraa. CURRENT FUNCTIONAL STATUS:: Anthony was sitting up in bed visiting with his during CM visit. He stated that had just been told that [facility] had a bed and transfer was offered. He and his decided to accept the transfer since they have been dealing with his afib and erratic heart rates for a long time.He will be transported by ambulance this evening. ADVANCE DIRECTIVES:: None on file Has patient been provided with information about the portal?: No Did the patient sign up for the portal?: No CODE STATUS:: DNR/DNI INSURANCE COVERAGE / FINANCIAL ISSUES:: Medicare PRIMARY CARE PHYSICIAN:: Yosvany Trejo POTENTIAL DISCHARGE NEEDS:: Follow up with PCP and Cardiology. Possible transfer to tertiary care facility. PATIENT/FAMILY EDUCATION NEEDS:: Discharge plan, limitations, follow up plan, Ask me Three. TRANSPORTATION:: via ambulance to [facility] to be arranged by nursing tipple supervisor. PLAN:: Anthony will be transferred to [facility] for follow up of his atrial fibrillation and for evaluation re: pacemaker.Ambulance to transport will be coordinated by nursing tipple supervisor. Final discharge plan to be determoned by [facility] providers.
[2019-01-13] MEDS: Losartan 50 MG TAB 100 MG PO (09:01)
[2019-01-13] MEDS: Insulin Aspart 300 UNITS/3 ML PEN SC ×2 (09:02→11:51)
[2019-01-13] MEDS: Magnesium Oxide 400 MG TAB PO (10:32)
--- NOTE | 2019-01-13 11:26 | W.PM.PROGNOT ---
Date of Service Date of service: 01/13/19 Time of Service: 11:26 Assessment and Plan Assessment and plan (1) Bradycardia: Status: Acute Assessment and plan: Hx of atrial fibrillation, with prior history of RVR and self-reported difficult to control HRs in the past. Patient very likely requires relatively high dose or combination of different nikunj agents for successful rate control, but has become significantly bradycardic on this combination of long-acting metoprolol and diltiazem. He may in fact be a candidate for PPM to avoid bradycardia, with subsequent combination beta-dequan and calcium channel dequan therapy to achieve rate control. Cardiology had been contacted and agreed with this assessment, reportedly both at [facility] and the [facility] where he is tentatively accepted pending bed availability. -Current HR appears improved, but starting to elevate off long-acting Cardizem and metoprolol succinate. Will begin titration now, and initiate low dose short-acting Cardizem, and continue to monitor closely. ECHO ordered and pending to assess for any structural heart disease as there is no echo results available locally. Will continue to maintain on the monitor worker, and monitor symptoms closely. Highly doubt ACS as ECG is nonischemic, and serial troponins negative. (2) H/O: GI bleed: Status: Chronic Assessment and plan: Apparent history of GI bleed while on anticoagulation with Coumadin. Will monitor INR carefully, and continue daily PPI and H2 dequan. - Current Hgb normal. (3) GERD (gastroesophageal reflux disease): Status: Chronic Assessment and plan: Treatment as above. (4) Obstructive sleep apnea: Status: Chronic Assessment and plan: Continue home CPAP. (5) Type II diabetes mellitus: Status: Chronic Assessment and plan: Continue low-dose sliding scale coverage, ADA diet. Blood sugars currently in the 100's. (6) CAD (coronary artery disease): Status: Chronic Assessment and plan: Hx of CAD, with reported 2 stents to the LAD in 1998, and repeat stenting in 2003. Admission ECG nonischemic, and serial troponins negative. Continue short-acting BB, daily aspirin, and statin therapy. (7) COPD (chronic obstructive pulmonary disease): Status: Acute Assessment and plan: Appears quiescent. Continue duo nebs as needed. (8) DVT prophylaxis: Status: Acute Assessment and plan: Continue anticoagulation and monitor daily INR -currently therapeutic. (9) Advance directive on file: Status: Acute Assessment and plan: Full Code per repeat discussion this morning. Subjective Subjective Interval history since last seen: Pleasant 73-year-old man with past medical history significant for AFib, admitted from [facility] Emergency Department on 01/12 with a diagnosis of symptomatic Bradycardia. Mr. Giraldo has past medical history significant for AFib with previously reported RVR, on chronic anticoagulation with Coumadin. His other history includes CAD, with 2 prior stents to the LAD 1998, restented in 2003. He also carries a diagnoses of DM, HTN, obesity, GERD, history of GI bleed on AC, insomnia, NOLA on CPAP, and COPD. He is [facility] cared [facility] at the [facility]. The patient reports a somewhat lengthy history of easy fatigability, ongoing for a number of months. However he also reports that over the past few weeks he has had worsening of the symptoms, along with GONZALES, tremors, and significant fatigue with minimal activity. When he took his vitals at home he noted rather low heart rate, and contacted his caregivers at the [facility] who instructed him to present to the nearest ED for evaluation. Work-up in the ED was remarkable for significant bradycardia with HR is in the 40s range, but remarkably with maintained blood pressures. Lab work was essentially unremarkable with the exception of a mildly elevated BNP at 861, and a troponin of less than 0.05. His EKG was difficult to interpret, but ultimately deemed to be atrial fibrillation with a slow ventricular response. The patient was at that point referred for admission for further evaluation and treatment. This morning Mr. Giraldo appears to be doing well. His HR is no longer bradycardic and well controlled in the 60-80's mostly, but is increasing to the 90's with minimal exertion. His serial cardiac biomarkers remained undetectable. No overnight events reported. Remains afebrile. Exam Narrative Exam Narrative: General: Patient appears comfortable, AAOX3, NAD Neck: Supple CV: Irregular, Nonbradycardic at time of exam, somewhat distant heart sounds No rubs, murmurs, or gallops. Pulmonary: Clear to auscultation bilaterally, no crackles, wheezing, or rhonchi Abdomen: + Bowel Sounds, soft, nondistended but obese in contour. slight discomfort at site of recent umbilical hernia repair Vascular: +1 pitting b/l lower extremity edema Psych: Normal mood and affect. Objective Objective Clinical Data: Abnormal lab results 01/12/19 01/12/19 01/12/19 Range/Units 13:31 13:31 13:31 Absolute Monocytes 0.89 H (0.11-0.7) k/cumm PT 26.5 H (9.3-11.0) sec INR 2.7 H (0.9-1.1) APTT 35.0 H (21.0-31.4) sec D-Dimer 545 H (<500) ng/mlFEU BUN 26 H (7-18) mg/dL Glucose 164 H (70-100) mg/dL NT-Pro-B Natriuret Pep ( - 299) pg/mL 01/12/19 01/13/19 01/13/19 Range/Units 13:32 05:50 05:50 Absolute Monocytes (0.11-0.7) k/cumm PT 22.1 H (9.3-11.0) sec INR 2.2 H (0.9-1.1) APTT (21.0-31.4) sec D-Dimer (<500) ng/mlFEU BUN (7-18) mg/dL Glucose 136 H (70-100) mg/dL NT-Pro-B Natriuret Pep 861 H ( - 299) pg/mL Vital Signs Temperature 36.8 C 01/13/19 07:40 Temperature Source Temporal Artery Scan 01/13/19 07:40 Pulse 70 01/13/19 07:49 Pulse Rhythm Irregular 01/13/19 07:40 Pulse 82 01/13/19 08:00 Respiratory Rate 15 01/13/19 08:00 Respiratory Effort Non-Labored 01/13/19 07:40 Respiratory Depth Normal 01/13/19 07:40 Respiratory Pattern Normal 01/13/19 07:40 Blood Pressure 154/95 H 01/13/19 07:49 Blood Pressure Mean 109 01/13/19 07:49 Blood Pressure Position Sitting 01/12/19 17:36 Pulse Oximetry 94 L 01/13/19 10:29 Oxygen Delivery Method Room Air 01/13/19 10:29 Oxygen Flow Rate 0 01/13/19 10:29 Pain Level 0 01/13/19 07:40 Intake & Output 01/12/19 01/12/19 01/13/19 11:59 23:59 11:59 Intake Total 740 / 740 480 / 480 Output Total 950 / 950 1375 / 1375 Balance -210 / -210 -895 / -895 Weight 98.2 kg 92.9 kg Intake: IV 500 / 500 Oral 240 / 240 480 / 480 Output: Urine 950 / 950 1375 / 1375 Other: Urine Color Yellow Yellow Urine Appearance Clear Clear Comment skinny urine stream per patient. Voiding Methods Urinal Urinal Laboratory Results WBC 9.13 k/cumm (4.4-10.8) 01/12/19 13:31 RBC 4.84 m/cumm (4.50-6.00) 01/12/19 13:31 Hgb 14.4 g/dL (13.5-17.5) 01/12/19 13:31 Hct 43.3 % (40.0-50.0) 01/12/19 13:31 MCV 89.5 fL (80-95) 01/12/19 13:31 MCH 29.8 pg (27.0-33.0) 01/12/19 13:31 MCHC 33.3 g/dL (32.0-36.0) 01/12/19 13:31 RDW 13.6 % (11.8-14.1) 01/12/19 13:31 Plt Count 270 x1000/uL (130-400) 01/12/19 13:31 MPV 10.7 fL (8.0-11.0) 01/12/19 13:31 Immature Gran % 0.3 01/12/19 13:31 Neutrophils % 72.8 01/12/19 13:31 Lymphocytes % 15.4 01/12/19 13:31 Monocytes % 9.7 01/12/19 13:31 Eosinophils % 1.6 01/12/19 13:31 Basophils % 0.2 01/12/19 13:31 Absolute Neutrophils 6.63 k/cumm (1.2-6.7) 01/12/19 13:31 Absolute Lymphocytes 1.41 k/cumm (1.2-3.4) 01/12/19 13:31 Absolute Monocytes 0.89 k/cumm (0.11-0.7) H 01/12/19 13:31 Absolute Eosinophils 0.15 k/cumm (0.0-0.7) 01/12/19 13:31 Absolute Basophils 0.02 k/cumm (0.0-0.2) 01/12/19 13:31 PT 22.1 sec (9.3-11.0) H 01/13/19 05:50 INR 2.2 (0.9-1.1) H 01/13/19 05:50 APTT 35.0 sec (21.0-31.4) H 01/12/19 13:31 D-Dimer 545 ng/mlFEU (<500) H 01/12/19 13:31 Sodium 142 mmol/L (136-145) 01/13/19 05:50 Potassium 4.3 mmol/L (3.5-5.1) 01/13/19 05:50 Chloride 107 mmol/L (98-107) 01/13/19 05:50 Carbon Dioxide 27.8 mmol/L (21.0-32.0) 01/13/19 05:50 Anion Gap 7.2 mmol/L (3-11) 01/13/19 05:50 BUN 18 mg/dL (7-18) D 01/13/19 05:50 Creatinine 0.94 mg/dL (0.70-1.30) 01/13/19 05:50 Estimated GFR/1.73 m2 >= 60.00 (mL/min/1.73m2) 01/13/19 05:50 Glucose 136 mg/dL (70-100) H 01/13/19 05:50 Calcium 8.8 mg/dL (8.5-10.1) 01/13/19 05:50 Magnesium 1.8 mg/dL (1.8-2.4) 01/13/19 05:50 Total Bilirubin 0.8 mg/dL (0.2-1.0) 01/12/19 13:31 AST 18 U/L (15-37) 01/12/19 13:31 ALT 37 U/L (16-63) 01/12/19 13:31 Alkaline Phosphatase 80 U/L (46-116) 01/12/19 13:31 Troponin I < 0.05 ng/mL (0.00-0.06) 01/13/19 05:50 NT-Pro-B Natriuret Pep 861 pg/mL (-299) H 01/12/19 13:32 Total Protein 7.1 g/dL (6.4-8.2) 01/12/19 13:31 Albumin 4.0 g/dL (3.4-5.0) 01/12/19 13:31
[2019-01-13] MEDS: Metoprolol 12.5 MG TAB 37.5 MG PO (11:50)
--- NOTE | 2019-01-13 13:00 | DI.US_ITS ---
APPROVED REPORT Conclusion Left Ventricle : The left ventricle is normal size. The left ventricular ejection fraction is within the normal range. LVEF is 50-54%. There is normal LV segmental wall motion. Diastolic function is i ndeterminant. Right Ventricle : The right ventricle is normal size. The right ventricular systolic function is norm al. Atria : The left atrium is dilated. The right atrium size is normal. Aortic Valve : The aortic valve is normal in structure. Aortic valve is trileaflet. There is no aorti c valvular stenosis. No aortic regurgitation is present. Mitral Valve : There is mitral annular calcification. No evidence of mitral valve stenosis. Mild mitr al regurgitation. Tricuspid Valve : The tricuspid valve is normal in structure. Mild tricuspid regurgitation. Pulmonic Valve : Pulmonic valve is not well visualized. Great Vessels : IVC is normal in size and collapses >50% with inspiration. There is no prior echocardiogram available for comparison. EXAM: Comprehensive 2D, Doppler, and color-flow Echocardiogram [facility]: Felicia Gallagher [facility] ([facility]) Indications: CAD, A FIB Left Ventricle The left ventricle is normal size. The left ventricular ejection fraction is within the normal range. There is normal left ventricular wall thickness. The posterior wall thickness is increased. The sept um is normal. There is normal LV segmental wall motion. Diastolic function is indeterminant. LVEF is 50-54%. Right Ventricle The right ventricle is normal size. The right ventricular systolic function is normal. Atria The left atrium is dilated. The right atrium size is normal. The interatrial septum is intact with no evidence for an atrial septal defect. Aortic Valve The aortic valve is normal in structure. Aortic valve is trileaflet. There is no aortic valvular sten osis. No aortic regurgitation is present. Mitral Valve There is mitral annular calcification. No evidence of mitral valve stenosis. Mild mitral regurgitatio n. Tricuspid Valve The tricuspid valve is normal in structure. There is no tricuspid valve stenosis. Mild tricuspid regu rgitation. Pulmonic Valve Pulmonic valve is not well visualized. There is no pulmonic valvular stenosis. Great Vessels The aortic root is normal in size. Aortic arch is not well visualized. The ascending aorta is normal in size. IVC is normal in size and collapses >50% with inspiration. Pericardium There is no pericardial effusion. 2D Dimensions IVSd 1.03 cm M: 0.6-1.2 LV EDV A2C 107.29 mL PWd 1.03 cm M: 0.6 - 1.2 LV EDV A4C 130.69 mL LVDd 4.91 cm M: 4.2 - 5.9 LA Volume Index A2C 49.98 mL/m2 LVDs 3.54 cm M: 2.5 - 4.0 LA Volume Index A4C 37.17 mL/m2 Aortic Root 3.35 cm M: 3.1 - 3.7 LA Volume Index Biplane 44.25 mL/m2 Left Atrium 4.04 cm M: 3.0 - 4.0 LA Area A4C 23.74 cm2 RA Area A4C 22.73 cm2 LA Area A2C 28.25 cm2 LVOT 1.91 cm (M/F) 1.5-2.5 LA/Aortic Root Ratio 0.83 Ascending Aorta 2.77 cm M: 2.6 - 3.4 EF AP4 58.18 % LVEF (Teich) 54.07 % EF AP2 47.84 % LVEF (Silva's) 52.76 % M: 52 - 72 EF BP 52.76 % FS 28.02 % LV Diastology E Decel Time 250.00 (160-240 msec) E/A Ratio 2.5 Aortic Valve LVOT Area 2.85 cm2 LVOT Peak Gregory. 0.93 m/s LVOT Mean Gregory. 0.58 m/s LVOT Peak Gr. 3.45 mmHg LVOT Mean Gr. 1.64 mmHg LVOT VTI 0.18 m AoV Peak Gregory. 1.24 (0.5-1.3 m/s) AoV Mean Gregory. 0.90 m/s AO Peak GR. 6.17 mmHg AO Mean GR. 3.48 (<5 mmHg) AO VTI 0.25 (0.18-0.25 m) ASHOK (VTI) 2.05 (2.5-4.5 cm2) ASHOK (VTI) Index 0.96 cm/m2 Mitral Valve MV E Max Gregory. 1.04 (0.4-1.3 m/s) MVA VTI 2.07 (4.0-6.0 cm2) MV A Velocity 0.42 (0.4-1.3 m/s) E/A Ratio 2.46 MV Decel. Time 250.28 (160-240 msec) MV Peak Gr. 97.53 mmHg MV PHT 72.58 msec MVA PHT 3.03 cm2 Pulmonary Valve PV Peak Velocity 0.93 (0.5-1.5 m/s) Tricuspid Valve TR P. Velocity 2.64 m/s TV Regurg Vmax 2.64 m/s TR P. Gradient 27.88 mmHg
--- NOTE | 2019-01-13 14:26 | PHARADMIT ---
Admission Pharmacy Clinical Review symptomatic bradycardia Code Status Full Code Current Weight 92.9 kg Renally Cleared and Narrow Therapeutic Index Meds Crcl ~78.8 mL/min using adjusted body weight current meds okay QTc Value / Action Taken QTc 354 BP Control, Fever BP 139/94 afebrile Electrolytes reviewed within normal limits DVT Prophylaxis pt is on warfarin Opiate Usage / Scheduled Bowel Regimen Ordered no/prn Plt/SCr for Heparin / Enoxaparin plt 270 SCr 0.94 INR for Warfarin INR 2.2 H/H stable, WBC/Bands h/h 14.4/43.3 WBC 9.13 Antibiotic appropriateness none Cultures and Sensitivities none Surgical ABX d/c within 24 hr n/a DM control / Insulin Dosing BG 136 sliding scale aspart ordered Heart Failure (Check EF%) (TORI's, B-Block, Diuretics) diltiazem, losartan, metoprolol, IV to PO Switch n/a Home Meds Reviewed -combivent inhaler and duonebs PRN -avoid concurrent use of simvastatin and diltiazem when possible, if used together avoid simvastatin doses greater than 10 mg/day and diltiazem doses greater than 240 mg/day and monitor closely for signs of simvastatin toxicity (rhabdomyolysis, myositis) -aspirin may enhance the anticoagulant effect of warfarin, monitor for bleeding Home Meds Not Ordered combivent (has duonebs ordered), montelukast Comments ECHO today watch INR, BP and HR
--- NOTE | 2019-01-13 15:39 | CHAPLAIN ---
I visited with Mehul and his . His granddaughter, an [employer] employee in [facility], was with them as well. Mehul said he is waiting to see if medication changes will work, or if he will need a pacemaker. Either way, God is good, he said. He is a member of the [employer] and the restorationism is aware that he is here. His nephew is an elder there.
[2019-01-13] MEDS: dilTIAZem 30 MG TAB PO (16:06)
--- NOTE | 2019-01-13 17:05 | CMDISCH_ITS ---
- If Service Date Differs Date of service: 01/13/19 Time of Service: 17:05 LACE Index Scoring Tool - Questions: Length of Stay (in days): 1 Acuity (Admit via E.D.?): Yes Comorbidities: Previous M.I., Diabetes w/o Complication, Congestive Heart Failure, Chronic Pulmonary Disease E.D. 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 Final discharge plan to be determoned by [facility] providers. Patient/Family Education Needs: Final discharge plan, limitations and follow up. Services Needed at Discharge: Transportation
== END 2019-01-13 17:20 ==
LOC: ER 16:21 → ICU 01-13 09:48
PROVIDERS: Admitting Provider Internal Medicine; Emergency Provider Physician Assistant; PCP Surgery Vascular Surgery; Visit Provider Internal Medicine
DX: R00.1 Bradycardia, unspecified (principal); I48.91 Unspecified atrial fibrillation; Z87.19 Personal history of other diseases of the digestive system; K21.9 Gastro-esophageal reflux disease without esophagitis; G47.33 Obstructive sleep apnea (adult) (pediatric); E11.9 Type 2 diabetes mellitus without complications; I25.10 Atherosclerotic heart disease of native coronary artery without angina pectoris; Z95.5 Presence of coronary angioplasty implant and graft; J44.9 Chronic obstructive pulmonary disease, unspecified; Z79.01 Long term (current) use of anticoagulants
CPT/HCPCS: 36415; 80048; 80053; 93005; 93306; 96360; 99222; 99233; 99285; 71045; 83735; 83880; 84484; 85025; 85379; 85610; 85730; 93010; 99217; 99219; G0378; J3490; J7620

== ENCOUNTER 2019-07-09 12:57 | Emergency (ER) | payer MEDICARE, SELFPAY ==
[2019-07-09 13:00] VITALS: BP 145/73; PULSE 73; TEMP 36.9; O2SAT 94
--- NOTE | 2019-07-09 13:14 | W.ED.GENAD ---
Discharge Plan Disposition Patient Disposition: HOME Condition: Improving Discharge Details Chief Complaint: Laceration Clinical Impression: Laceration of left little finger Primary Care Provider: Yosvany Trejo ED Provider: Randy Arellano Home Meds and New Rx's Prescriptions: New cephalexin 500 mg capsule 500 mg PO TID 3 Days Qty: 9 RF: 0 No Action aspirin [Aspir-81] 81 MG tablet,delayed release (DR/EC) 81 mg PO HS RF: 0 trazodone 50 MG tablet 50 mg PO DAILY RF: 0 omeprazole 20 MG capsule,delayed release(DR/EC) 40 mg PO DAILY RF: 0 ipratropium-albuterol 3 ML solution for nebulization 1 inh Inhalation Q4H PRN PRNRF: 0 Combivent Respimat 120 PUFF mist 2 inh Inhalation Q4H PRN PRNRF: 0 losartan 50 MG tablet 100 mg PO DAILY Qty: 0 RF: 0 warfarin [Coumadin] 2 MG tablet 2 mg PO DIRECTED RF: 0 metoprolol succinate 100 MG tablet extended release 24 hr 100 mg PO DAILY RF: 0 diltiazem HCl 240 MG capsule,extended release 24hr 360 mg PO DAILY RF: 0 simvastatin 80 mg Tablet 80 mg PO QHS RF: 0 montelukast 10 mg Tablet 10 mg PO DAILY RF: 0 Discharge Instructions Instructions: Finger Laceration (ED) Additional Instructions: Leave wound dressing in place for 72 hours, then may gently remove, gently irrigate and pat dry, replace dressing. As the wound is an avulsion, anticipate that it will take approximately 2 weeks to heal. Take Keflex as prescribed for 3 days time. Return to develop a fever, foul-smelling discharge from the wound, or any other acute concern. Medical Decision Making 73-year-old man who avulsed the distal portion of his left fifth/pinky finger on a table saw. There is no significant laceration, there is no tissue to be repaired. The nailbed germinal matrix is intact. Wound was irrigated and cleansed, I personally dressed the wound at the bedside and advised the patient on home management. I would consider this inherently dirty wound and will place him on 72 hours of Keflex. He is stable and improved. HPI General Mode of arrival: ambulatory. Date/Time Provider Initiated Documentation: 07/09/19 12:59. Limitations to Documentation: no limitations. Information obtained by: patient. History of Present Illness 73 year old M presents to the emergency department with the chief complaint of Left fifth digit tablesaw injury, described as mild, Quality is described as dull and constant, and is localized to the left and upper extremity. Patient reports no radiation. Patient started experiencing this minute(s) and it has been constant. No relieving factors improve symptom(s), No exacerbating factors reported . Patient notes other (Pressure applied at the scene, states that his tetanus is up-to-date.). Related Data Home Medications Medication Instructions Recorded Confirmed aspirin [Aspir-81] 81 mg PO HS 12/08/12 01/12/19 omeprazole 40 mg PO DAILY 12/08/12 01/12/19 trazodone 50 mg PO DAILY 12/08/12 01/12/19 Combivent Respimat 2 inh INHALATION Q4H PRN PRN 03/17/14 01/12/19 ipratropium-albuterol 1 inh INHALATION Q4H PRN PRN 03/17/14 01/12/19 losartan 100 mg PO DAILY #0 03/18/14 01/12/19 warfarin [Coumadin] 2 mg PO DIRECTED 01/03/17 11/07/18 diltiazem HCl 360 mg PO DAILY 05/25/17 01/12/19 metoprolol succinate 100 mg PO DAILY 05/25/17 01/12/19 montelukast 10 mg PO DAILY 01/12/19 01/12/19 simvastatin 80 mg PO QHS 01/12/19 01/12/19 cephalexin 500 mg PO TID 3 Days #9 cap 07/09/19 Previous Rx's Medication Instructions Recorded losartan 100 mg PO DAILY #0 03/18/14 cephalexin 500 mg PO TID 3 Days #9 cap 07/09/19 Allergies Allergy/AdvReac Type Severity Reaction Status Date / Time iodine Allergy Mild Unverified 07/09/19 13:03 General Stated Complaint: Laceration ABHILASH: 4 Review of Systems Narrative: No other injury. [facility] Medical History Asthma (Chronic) Atrial fibrillation (Chronic) CHF (congestive heart failure) (Chronic) COPD (chronic obstructive pulmonary disease) (Chronic) Diabetes (Chronic) GERD (gastroesophageal reflux disease) (Chronic) HTN (hypertension) (Chronic) Myocardial infarction (Chronic) Social History Smoking/Tobacco Use Status: Former Tobacco Use Alcohol Intake: never Drug use: Never Substance use type: does not use Do you feel safe at home: Yes Do you feel safe in your relationship?: Yes Exam Narrative Exam Narrative: GEN: awake, alert, oriented 3. Pleasant, well groomed, interactive. HEAD: Normocephalic, atraumatic ENT: Mucous membranes moist, External ear exam unremarkable EYES: PERRL, EOMI EXT: Full ROM, no edema, no rash. The left fifth digit has a avulsion to the dorsal distal ulnar aspect of the finger distal to the germinal matrix of the nail bed. The volar pad is not involved. Sensation is intact. No foreign body seen, no bony exposure Neuro: Grossly normal neurologic exam, conversant, interactive. Psych: Speech fluent, thoughts congruent, affect normal Course Vital Signs Vital signs: Vital Signs Temperature 36.9 C 07/09/19 13:00 Pulse 73 07/09/19 13:00 Blood Pressure 145/73 H 07/09/19 13:00 Pulse Oximetry 94 L 07/09/19 13:00 Temperature 36.9 C 07/09/19 13:00 Temperature Source Tympanic 07/09/19 13:00 Pulse 73 07/09/19 13:00 Blood Pressure 145/73 H 07/09/19 13:00 Blood Pressure Position Sitting 07/09/19 13:00 Pulse Oximetry 94 L 07/09/19 13:00 Oxygen Delivery Method Room Air 07/09/19 13:00 Oxygen Flow Rate 0 07/09/19 13:00 Pain Level 7 07/09/19 13:00
== END 2019-07-09 13:25 | disposition home or self-care (01) ==
PROVIDERS: Emergency Provider Emergency Medicine; PCP Surgery Vascular Surgery
DX: S61.217A Laceration without foreign body of left little finger without damage to nail, initial encounter (principal); W31.2XXA Contact with powered woodworking and forming machines, initial encounter; Z79.01 Long term (current) use of anticoagulants; I11.0 Hypertensive heart disease with heart failure; E11.9 Type 2 diabetes mellitus without complications; I50.9 Heart failure, unspecified; J44.9 Chronic obstructive pulmonary disease, unspecified
CPT/HCPCS: 99283

== ENCOUNTER 2019-07-09 18:44 | Emergency (ER) | payer MEDICARE, SELFPAY ==
[2019-07-09 18:55] VITALS: BP 124/76; PULSE 67; RESP 18; TEMP 36.6; O2SAT 91
--- NOTE | 2019-07-09 19:10 | ED.GENADUL_ITS ---
Discharge Plan Disposition Patient Disposition: HOME Condition: Stable Discharge Details Chief Complaint: Laceration Clinical Impression: Visit for wound check Primary Care Provider: Yosvany Trejo ED Provider: Randy Arellano Home Meds and New Rx's Prescriptions: Continued aspirin [Aspir-81] 81 MG tablet,delayed release (DR/EC) 81 mg PO HS RF: 0 trazodone 50 MG tablet 50 mg PO DAILY RF: 0 omeprazole 20 MG capsule,delayed release(DR/EC) 40 mg PO DAILY RF: 0 ipratropium-albuterol 3 ML solution for nebulization 1 inh Inhalation Q4H PRN PRNRF: 0 Combivent Respimat 120 PUFF mist 2 inh Inhalation Q4H PRN PRNRF: 0 losartan 50 MG tablet 100 mg PO DAILY Qty: 0 RF: 0 warfarin [Coumadin] 2 MG tablet 2 mg PO DIRECTED RF: 0 metoprolol succinate 100 MG tablet extended release 24 hr 100 mg PO DAILY RF: 0 diltiazem HCl 240 MG capsule,extended release 24hr 360 mg PO DAILY RF: 0 simvastatin 80 mg Tablet 80 mg PO QHS RF: 0 montelukast 10 mg Tablet 10 mg PO DAILY RF: 0 cephalexin 500 mg capsule 500 mg PO TID 3 Days Qty: 9 RF: 0 Discharge Instructions Additional Instructions: Leave current dressing in place 3 to 4 days time, then may remove with gentle application of warm water, pat dry and replace dressing. Continue your regular medications. Return for any acute concern. Medical Decision Making 73-year-old male on warfarin who suffered an avulsion to the distal portion of his left fifth finger earlier today. He was seen by me and dressed. He subsequently awoke from a nap and found wound was oozing blood through the dressing for which she sought reevaluation this evening. The wound was taken down cleansed, Gelfoam was placed and dressing replaced. This was successful and cessation of bleeding. Discussed with him home management as well as indications for reevaluation. Stable and improved at this time. HPI General Mode of arrival: ambulatory . Date/Time Provider Initiated Documentation: 07/09/19 18:45 . Limitations to Documentation: no limitations . Information obtained by: patient . History of Present Illness 73 year old M presents to the emergency department with the chief complaint of Seen earlier for finger laceration/avulsion that is now bleeding through , described as mild, Quality is described as constant, and is localized to the left and upper extremity. Patient reports no radiation. and it has been constant. No relieving factors improve symptom(s), No exacerbating factors reported . Patient notes no other symptoms.. Patient did receive the following treatments prior to arrival, none Related Data Home Medications Medication Instructions Recorded Confirmed aspirin [Aspir-81] 81 mg PO HS 12/08/12 07/09/19 omeprazole 40 mg PO DAILY 12/08/12 07/09/19 trazodone 50 mg PO DAILY 12/08/12 07/09/19 Combivent Respimat 2 inh INHALATION Q4H PRN PRN 03/17/14 07/09/19 ipratropium-albuterol 1 inh INHALATION Q4H PRN PRN 03/17/14 07/09/19 losartan 100 mg PO DAILY #0 03/18/14 07/09/19 warfarin [Coumadin] 2 mg PO DIRECTED 01/03/17 07/09/19 diltiazem HCl 360 mg PO DAILY 05/25/17 07/09/19 metoprolol succinate 100 mg PO DAILY 05/25/17 07/09/19 montelukast 10 mg PO DAILY 01/12/19 07/09/19 simvastatin 80 mg PO QHS 01/12/19 07/09/19 cephalexin 500 mg PO TID 3 Days #9 cap 07/09/19 07/09/19 Previous Rx's Medication Instructions Recorded losartan 100 mg PO DAILY #0 03/18/14 cephalexin 500 mg PO TID 3 Days #9 cap 07/09/19 Allergies Allergy/AdvReac Type Severity Reaction Status Date / Time iodine Allergy Mild Unverified 07/09/19 18:57 General Stated Complaint: Laceration ABHILASH: 4 Review of Systems Narrative: Patient denies other complaint. [facility] Medical History Asthma (Chronic) Atrial fibrillation (Chronic) CHF (congestive heart failure) (Chronic) COPD (chronic obstructive pulmonary disease) (Chronic) Diabetes (Chronic) GERD (gastroesophageal reflux disease) (Chronic) HTN (hypertension) (Chronic) Myocardial infarction (Chronic) Social History Smoking/Tobacco Use Status: Former Tobacco Use Alcohol Intake: never Drug use: Never Substance use type: does not use Do you feel safe at home: Yes Do you feel safe in your relationship?: Yes Exam Narrative Exam Narrative: GEN: awake, alert, oriented 3. Pleasant, well groomed, interactive. HEAD: Normocephalic, atraumatic Extremity: Dressing on left fifth digit is bloody. Removed and there is persistent area of avulsion to the distal ulnar dorsal aspect of the left fifth digit with preservation of the germinal matrix of the nail bed as well as the volar surface. Neuro: Grossly normal neurologic exam, conversant, interactive. Psych: Speech fluent, thoughts congruent, affect normal Course Vital Signs Vital signs: Vital Signs Temperature 36.6 C 07/09/19 18:55 Pulse 67 07/09/19 18:55 Respiratory Rate 18 07/09/19 18:55 Blood Pressure 124/76 07/09/19 18:55 Pulse Oximetry 91 L 07/09/19 18:55 Temperature 36.6 C 07/09/19 18:55 Temperature Source Skin 07/09/19 18:55 Pulse 67 07/09/19 18:55 Respiratory Rate 18 07/09/19 18:55 Respiratory Effort Non-Labored 07/09/19 18:57 Blood Pressure 124/76 07/09/19 18:55 Blood Pressure Position Sitting 07/09/19 18:55 Pulse Oximetry 91 L 07/09/19 18:55 Oxygen Delivery Method Room Air 07/09/19 18:55 Oxygen Flow Rate 0 07/09/19 18:55 Pain Level 0 07/09/19 18:55
[2019-07-09 19:20] VITALS: BP 124/76; PULSE 67; RESP 18; TEMP 36.6; O2SAT 91
== END 2019-07-09 19:25 | disposition home or self-care (01) ==
PROVIDERS: Emergency Provider Emergency Medicine; PCP Surgery Vascular Surgery
DX: T81.30XA Disruption of wound, unspecified, initial encounter (principal); S61.217D Laceration without foreign body of left little finger without damage to nail, subsequent encounter; W31.2XXD Contact with powered woodworking and forming machines, subsequent encounter; I48.91 Unspecified atrial fibrillation; Z79.01 Long term (current) use of anticoagulants; E11.9 Type 2 diabetes mellitus without complications; I50.9 Heart failure, unspecified; Z44.9 Encounter for fitting and adjustment of unspecified external prosthetic device; Z48.00 Encounter for change or removal of nonsurgical wound dressing
CPT/HCPCS: 99281; 99283; L3650

== ENCOUNTER 2019-07-09 22:36 | Emergency (ER) | payer MEDICARE, SELFPAY ==
[2019-07-09 22:41] VITALS: BP 140/77; PULSE 66; RESP 20; TEMP 36.7; O2SAT 94
--- NOTE | 2019-07-09 22:48 | W.ED.GENAD ---
Discharge Plan Disposition Patient Disposition: HOME Condition: Stable Discharge Details Chief Complaint: Recheck Clinical Impression: Visit for wound check Primary Care Provider: Yosvany Trejo ED Provider: Byron Baez Home Meds and New Rx's Prescriptions: Continued aspirin [Aspir-81] 81 MG tablet,delayed release (DR/EC) 81 mg PO HS RF: 0 trazodone 50 MG tablet 50 mg PO DAILY RF: 0 omeprazole 20 MG capsule,delayed release(DR/EC) 40 mg PO DAILY RF: 0 ipratropium-albuterol 3 ML solution for nebulization 1 inh Inhalation Q4H PRN PRNRF: 0 Combivent Respimat 120 PUFF mist 2 inh Inhalation Q4H PRN PRNRF: 0 losartan 50 MG tablet 100 mg PO DAILY Qty: 0 RF: 0 warfarin [Coumadin] 2 MG tablet 2 mg PO DIRECTED RF: 0 metoprolol succinate 100 MG tablet extended release 24 hr 100 mg PO DAILY RF: 0 diltiazem HCl 240 MG capsule,extended release 24hr 360 mg PO DAILY RF: 0 simvastatin 80 mg Tablet 80 mg PO QHS RF: 0 montelukast 10 mg Tablet 10 mg PO DAILY RF: 0 cephalexin 500 mg capsule 500 mg PO TID 3 Days Qty: 9 RF: 0 Discharge Instructions Additional Instructions: as best you can try not to hit or touch the finger if bleeding resumes and you are unable to control the bleeding return to the emergency department Medical Decision Making 73 yo male with afib on coumadin comes in with bleeding from left pinky wound. Earlier today avulses side of his left distal pinky, seen in ED and d/c'd and had bleeding so returned and had it wrapped and d/c'd again. States it started bleeding again and does have blood soaked gauze on. This was removed and has about 1cm avulsion without a laceration. intact senastion and pulses, full rom of the finger. Placed finger in a finger tourniquet and will plcae gauze soaked in txa on it for 10 minutes and reassess. placed dermabond on woud and removed finger tourniquet and no further bleeding, will d/c home Differential Diagnosis Differential Diagnosis: lac, abrasion HPI General Mode of arrival: ambulatory. Date/Time Provider Initiated Documentation: 07/09/19 22:37. Limitations to Documentation: no limitations. Information obtained by: patient. History of Present Illness 73 year old M presents to the emergency department with the chief complaint of left pinky wound bleeding, described as moderate, Patient started experiencing this hour(s) (1) and it has been constant. No relieving factors improve symptom(s), No exacerbating factors reported . Patient did receive the following treatments prior to arrival, none Related Data Home Medications Medication Instructions Recorded Confirmed aspirin [Aspir-81] 81 mg PO HS 12/08/12 07/09/19 omeprazole 40 mg PO DAILY 12/08/12 07/09/19 trazodone 50 mg PO DAILY 12/08/12 07/09/19 Combivent Respimat 2 inh INHALATION Q4H PRN PRN 03/17/14 07/09/19 ipratropium-albuterol 1 inh INHALATION Q4H PRN PRN 03/17/14 07/09/19 losartan 100 mg PO DAILY #0 03/18/14 07/09/19 warfarin [Coumadin] 2 mg PO DIRECTED 01/03/17 07/09/19 diltiazem HCl 360 mg PO DAILY 05/25/17 07/09/19 metoprolol succinate 100 mg PO DAILY 05/25/17 07/09/19 montelukast 10 mg PO DAILY 01/12/19 07/09/19 simvastatin 80 mg PO QHS 01/12/19 07/09/19 cephalexin 500 mg PO TID 3 Days #9 cap 07/09/19 07/09/19 Previous Rx's Medication Instructions Recorded losartan 100 mg PO DAILY #0 03/18/14 cephalexin 500 mg PO TID 3 Days #9 cap 07/09/19 Allergies Allergy/AdvReac Type Severity Reaction Status Date / Time iodine Allergy Mild Unverified 07/09/19 22:43 General Stated Complaint: Recheck ABHILASH: 4 Review of Systems All systems reviewed & are unremarkable except as noted in HPI and below Constitutional Constitutional: Denies chills, Denies fever(s) and Denies weakness ENT Ears, Nose, Mouth, and Throat: Denies change in voice Cardiovascular Cardiovascular: Denies chest pain and Denies dyspnea Respiratory Respiratory: Denies cough and Denies dyspnea Gastrointestinal Gastrointestinal: Denies abdominal pain, Denies nausea and Denies vomiting Genitourinary Genitourinary: Denies dysuria Musculoskeletal Musculoskeletal: Denies joint swelling Integumentary/Breasts Skin/Breast: Denies rash Neurologic Neurologic: Denies weakness Psychiatric Psychiatric: Denies depression [facility] Social History Smoking/Tobacco Use Status: Former Tobacco Use Alcohol Intake: never Drug use: Never Substance use type: does not use Do you feel safe at home: Yes Do you feel safe in your relationship?: Yes Exam Const General: no acute distress Orientation: alert HENMT Head: normal to inspection Ears: external ears normal General nose exam: external nose normal Mouth: moist mucous membranes Eyes General: appearance normal, both eyes and all related structures Neck Neck: normal visual inspection Resp Effort & Inspection: normal respiratory effort and able to speak in complete sentences Cardio Rate: regular rate Skin General skin exam: no rashes or lesions noted Neuro General: patient alert and patient oriented x3 Extrem General: full ROM and capillary refill normal Psych Mental Status: mental status grossly normal Course Vital Signs Vital signs: Vital Signs Temperature 36.7 C 07/09/19 22:41 Pulse 66 07/09/19 22:41 Respiratory Rate 20 07/09/19 22:41 Blood Pressure 140/77 07/09/19 22:41 Pulse Oximetry 94 L 07/09/19 22:41 Temperature 36.7 C 07/09/19 22:41 Temperature Source Temporal Artery Scan 07/09/19 22:41 Pulse 66 07/09/19 22:41 Respiratory Rate 20 07/09/19 22:41 Respiratory Effort Non-Labored 07/09/19 22:43 Blood Pressure 140/77 07/09/19 22:41 Blood Pressure Position Sitting 07/09/19 22:41 Pulse Oximetry 94 L 07/09/19 22:41 Oxygen Delivery Method Room Air 07/09/19 22:41 Oxygen Flow Rate 0 07/09/19 22:41 Pain Level 6 07/09/19 22:41
[2019-07-10] MEDS: Tranexamic Acid 1,000 MG/10 ML VIAL 1000 MG (01:40)
== END 2019-07-09 23:30 | disposition home or self-care (01) ==
PROVIDERS: Emergency Provider Emergency Medicine; PCP Surgery Vascular Surgery
DX: T81.30XD Disruption of wound, unspecified, subsequent encounter (principal); S61.217D Laceration without foreign body of left little finger without damage to nail, subsequent encounter; X58.XXXD Exposure to other specified factors, subsequent encounter; I48.91 Unspecified atrial fibrillation; Z79.01 Long term (current) use of anticoagulants; I11.0 Hypertensive heart disease with heart failure; E11.9 Type 2 diabetes mellitus without complications; I50.9 Heart failure, unspecified; J44.9 Chronic obstructive pulmonary disease, unspecified; Z48.00 Encounter for change or removal of nonsurgical wound dressing
CPT/HCPCS: 99281

== ENCOUNTER 2019-09-25 09:48 | Emergency (ER) | payer OTHER, SELFPAY ==
[2019-09-25 09:55] VITALS: BP 139/68; PULSE 61; RESP 18; TEMP 36.7; O2SAT 95
--- NOTE | 2019-09-25 10:30 | ED.GENADUL_ITS ---
Discharge Plan Disposition Patient Disposition: HOME Condition: Stable Discharge Details Chief Complaint: Orthopedic Clinical Impression: Flexor tendinitis of hand, Carpal tunnel syndrome on left Primary Care Provider: Yosvany Trejo ED Provider: Higinio Grant Home Meds and New Rx's Prescriptions: Continued aspirin [Aspir-81] 81 MG tablet,delayed release (DR/EC) 81 mg PO HS RF: 0 trazodone 50 MG tablet 50 mg PO DAILY RF: 0 omeprazole 20 MG capsule,delayed release(DR/EC) 40 mg PO DAILY RF: 0 ipratropium-albuterol 3 ML solution for nebulization 1 inh Inhalation Q4H PRN PRNRF: 0 Combivent Respimat 120 PUFF mist 2 inh Inhalation Q4H PRN PRNRF: 0 losartan 50 MG tablet 100 mg PO DAILY Qty: 0 RF: 0 warfarin [Coumadin] 2 MG tablet 2 mg PO DIRECTED RF: 0 metoprolol succinate 100 MG tablet extended release 24 hr 100 mg PO DAILY RF: 0 diltiazem HCl 240 MG capsule,extended release 24hr 360 mg PO DAILY RF: 0 simvastatin 80 mg Tablet 80 mg PO QHS RF: 0 montelukast 10 mg Tablet 10 mg PO DAILY RF: 0 Eliquis 5 mg Tablet 5 mg PO BID RF: 0 Discharge Instructions Instructions: Tendinitis (ED) Additional Instructions: Please minimize use of your right hand to allow for tendinitis to heal. Please take ibuprofen over the counter. Take 400mg by mouth every 6 hours as needed for pain. Please follow-up with orthopedics. Return to the ER for any worsening or new concerning symptoms. Discharge Data Discharge Date/Time-TO BE ENTERED AT DEPARTURE: 09/25/19 10:36 Medical Decision Making 73-year-old male here with tendinitis of his right hand flexor tendons digits 4 and 5. Patient also with symptoms and signs concerning for carpal tunnel syndrome of the left hand. Patient was advised to rest over the next week and not perform any manual labor. Patient noted he would not be able to adhere to these instructions but that he would do his best to avoid heavy use. I encouraged him to use nonsteroidal anti-inflammatory medication to dose according to label. I offered to splint his hand and he declined. Usual and customary discharge instructions were otherwise reviewed with the patient. Patient was encouraged to follow-up with his primary care physician and orthopedics and to return should have any worsening or new concerning symptoms. HPI General Mode of arrival: ambulatory . Date/Time Provider Initiated Documentation: 09/25/19 10:01 . Limitations to Documentation: no limitations . Information obtained by: patient . HPI Narrative: 73-year-old male with chief complaint of right hand pain. 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 He states that seems like his right fourth and fifth digits sometimes lock up and that he has some discomfort when flexing his digits. Symptoms have been present for the past 2 weeks. Symptoms have been worse with recent increase in manual labor. Patient also notes intermittent tingling/numbness in his left palm over the past weeks to months. Related Data Home Medications Medication Instructions Recorded Confirmed aspirin [Aspir-81] 81 mg PO HS 12/08/12 07/09/19 omeprazole 40 mg PO DAILY 12/08/12 09/25/19 trazodone 50 mg PO DAILY 12/08/12 09/25/19 Combivent Respimat 2 inh INHALATION Q4H PRN PRN 03/17/14 09/25/19 ipratropium-albuterol 1 inh INHALATION Q4H PRN PRN 03/17/14 09/25/19 losartan 100 mg PO DAILY #0 03/18/14 09/25/19 warfarin [Coumadin] 2 mg PO DIRECTED 01/03/17 07/09/19 diltiazem HCl 360 mg PO DAILY 05/25/17 07/09/19 metoprolol succinate 100 mg PO DAILY 05/25/17 09/25/19 montelukast 10 mg PO DAILY 01/12/19 09/25/19 simvastatin 80 mg PO QHS 01/12/19 09/25/19 Eliquis 5 mg PO BID 09/25/19 09/25/19 Previous Rx's Medication Instructions Recorded losartan 100 mg PO DAILY #0 03/18/14 Allergies Allergy/AdvReac Type Severity Reaction Status Date / Time iodine Allergy Mild Unverified 07/09/19 22:43 General Stated Complaint: Orthopedic ABHILASH: 4 Review of Systems Constitutional Constitutional: Denies body ache(s) and Denies fever(s) Cardiovascular Cardiovascular: Denies chest pain Musculoskeletal Musculoskeletal: Reports as per HPI Neurologic Neurologic: Reports as per HPI [facility] Medical History Asthma (Chronic) Atrial fibrillation (Chronic) CHF (congestive heart failure) (Chronic) COPD (chronic obstructive pulmonary disease) (Chronic) Diabetes (Chronic) GERD (gastroesophageal reflux disease) (Chronic) HTN (hypertension) (Chronic) Myocardial infarction (Chronic) Surgical History History of carpal tunnel release (Acute) History of coronary artery stent placement (Chronic) Social History Smoking/Tobacco Use Status: Former Tobacco Use Alcohol Intake: never Drug use: Never Substance use type: does not use Do you feel safe at home: Yes Do you feel safe in your relationship?: Yes Exam Const General: cooperative and no acute distress HENMT Mouth: moist mucous membranes Cardio Rate: regular rate and not tachycardic Rhythm: regular rhythm Pulses: radial pulses present bilaterally 2+ Skin General skin exam: no rashes or lesions noted Neuro General: patient alert, patient awake, patient oriented x3 and tone normal Cognition: normal cognition Speech: speech normal Gait: normal gait Motor: muscle tone normal throughout and strength 5/5 throughout Sensory Exam: no sensory deficits noted Extrem General: no edema Right upper extremity: hand Details: normal capillary refill, neuromotor exam normal, neurosensory exam normal and tenderness (Flexor tendons of the fourth a nd fifth digits over palm); no unusual warmth and no swelling Left upper extremity: wrist Details: normal ROM; no tenderness, no swelling, no unusual warmth and Tinel's positive Course Vital Signs Vital signs: Vital Signs Temperature 36.7 C 09/25/19 09:55 Pulse 61 09/25/19 09:55 Respiratory Rate 18 09/25/19 09:55 Blood Pressure 139/68 09/25/19 09:55 Pulse Oximetry 95 09/25/19 09:55 Temperature 36.7 C 09/25/19 09:55 Temperature Source Temporal Artery Scan 09/25/19 09:55 Pulse 61 09/25/19 09:55 Respiratory Rate 18 09/25/19 09:55 Respiratory Effort 09/25/19 10:01 Blood Pressure 139/68 09/25/19 09:55 Pulse Oximetry 95 09/25/19 09:55 Oxygen Delivery Method Room Air 09/25/19 09:55 Oxygen Flow Rate 0 09/25/19 09:55 Pain Level 5 09/25/19 10:01
== END 2019-09-25 10:36 | disposition home or self-care (01) ==
PROVIDERS: Emergency Provider Student in an Organized Health Care Education/Training Program; PCP Surgery Vascular Surgery
DX: M65.841 Other synovitis and tenosynovitis, right hand (principal); G56.02 Carpal tunnel syndrome, left upper limb; I11.0 Hypertensive heart disease with heart failure; I50.9 Heart failure, unspecified; E11.9 Type 2 diabetes mellitus without complications; J44.9 Chronic obstructive pulmonary disease, unspecified; Z87.891 Personal history of nicotine dependence
CPT/HCPCS: 99282

== ENCOUNTER 2019-12-08 09:59 | Emergency (ER) | payer MEDICARE, SELFPAY ==
[2019-12-08 09:52] VITALS: BP 135/77; PULSE 68; RESP 16; TEMP 37.1; O2SAT 97
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
[2019-12-08] MEDS: Omnipaque 350 MG/ML 100 ML BTL IJ (11:12)
[2019-12-08 11:23] LABS: Abs Immature Grans 0.04 10^3/uL (0.0-0.06); Absolute Basophil Count 0.02 10^3/uL (0.0-0.2); Absolute Eosinophil Count 0.02 10^3/uL (0.0-0.7); Absolute Lymphocyte Count 1.06 10^3/uL (1.2-3.4); Absolute Monocyte Count 0.71 10^3/uL (0.1-0.8); Absolute Neutrophil Count 6.05 10^3/uL (1.2-6.7); Basophils % 0.3; Eosinophils % 0.3; HCT 38.8 % (40.0-50.0); HGB 13.2 g/dL (13.5-17.5); Immature Grans % 0.5; Lymphocytes % 13.4; MCH 29.7 pg (27.0-33.0); MCV 87.2 fL (80-95); MPV 10.4 fL (8.0-11.0); Neutrophils % 76.5; Nucleated RBC 0 %; Platelet Count 196 10^3/uL (130-400); RBC 4.45 10^6/uL (4.36-5.78); RDW 12.9 % (11.8-14.1); RDW-SD 40.8 fL
[2019-12-08 11:42] LABS: ALT 36 U/L (16-63); AST 32 U/L (15-37); Albumin 3.2 g/dL (3.4-5.0); Alkaline Phosphatase 67 U/L (46-116); Anion Gap 6.9 mmol/L (3-11); BUN 25 mg/dL (7-18); Bilirubin, Total 1.1 mg/dL (0.2-1.0); CO2 28.1 mmol/L (21.0-32.0); CREATININE 0.92 mg/dL (0.70-1.30); Calcium 8.5 mg/dL (8.5-10.1); Chloride 101 mmol/L (98-107); Glucose 155 mg/dL (74-106); Potassium 3.8 mmol/L (3.5-5.1); Sodium 136 mmol/L (136-145); Total Protein 5.9 g/dL (6.4-8.2)
[2019-12-08 12:01] VITALS: BP 119/68; PULSE 64; RESP 16; TEMP 36.9; O2SAT 95
[2019-12-08] MEDS: Normal Saline Flush 10 ML SYR IVP (12:05)
[2019-12-08 12:06] VITALS: BP 119/68; PULSE 64; RESP 16; TEMP 36.9; O2SAT 95
== END 2019-12-08 12:14 | disposition home or self-care (01) ==
PROVIDERS: Emergency Provider Student in an Organized Health Care Education/Training Program
DX: S39.012A Strain of muscle, fascia and tendon of lower back, initial encounter (principal); G89.29 Other chronic pain; V43.52XA Car driver injured in collision with other type car in traffic accident, initial encounter; I10 Essential (primary) hypertension; M43.16 Spondylolisthesis, lumbar region; Z79.01 Long term (current) use of anticoagulants; I48.91 Unspecified atrial fibrillation; E11.9 Type 2 diabetes mellitus without complications; Z79.84 Long term (current) use of oral hypoglycemic drugs; J44.9 Chronic obstructive pulmonary disease, unspecified; Z87.891 Personal history of nicotine dependence
CPT/HCPCS: 36415; 74177; 80053; 86850; 86900; 86901; 99285; 71260; 72125; 85025; J3490; L0172

== ENCOUNTER 2020-05-31 11:10 | Emergency (ER) | payer MEDICARE, SELFPAY ==
[2020-05-31] VITALS (32 sets, daily range): BP systolic 128–175; BP diastolic 71–89; PULSE 70–80; RESP 12–23; TEMP 37; O2SAT 89–96
--- NOTE | 2020-05-31 11:30 | RT.EKG_ITS ---
APPROVED REPORT Exam: Resting ECG Patient Location: E HR:74 bpm ECG Measurements Heart Rate 74 AXIS NV 190 P 65 QRSd 101 QRS 8 QT 397 T 26 QTc 442 Conclusion Sinus rhythm...normal P axis, V-rate 60- 99
--- NOTE | 2020-05-31 11:30 | DI.RAD_ITS ---
EXAM: XR PORTABLE CHEST AP CLINICAL HISTORY: shortness of breath, cough TECHNIQUE: 2D digital imaging was performed. COMPARISON: CR CHEST 2 VIEWS PA,LAT from 05/25/2017 CR CHEST 2 VIEWS PA,LAT from 05/25/2017 CR XR CHEST 2V PA LATERAL from 04/07/2018 CR XR CHEST 2V PA LATERAL from 04/07/2018 CR XR PORTABLE CHEST AP from 01/12/[address] CHEST/ABD/PEL W from 12/08/2019 CT CHEST/ABD/PEL W from 12/08/[address] THORACIC LUMBAR SPINE REC from 12/08/2019 FINDINGS: Heart size is normal. The lungs are suboptimally inflated. There is linear atelectasis at the left lung base. No infiltrate or effusion is seen. No pneumothorax. IMPRESSION: Left basilar atelectasis. No acute pulmonary findings. DATA REPOSITORY: RADIATION DOSE DELIVERED:
--- NOTE | 2020-05-31 11:47 | ED.GENADUL_ITS ---
Discharge Plan Disposition Patient Disposition: HOME Condition: Good Discharge Details Clinical Impression: COPD (chronic obstructive pulmonary disease) Primary Care Provider: Unknown,Unknown ED Provider: Lauren Devi Home Meds and New Rx's Prescriptions: New doxycycline hyclate 100 mg capsule 100 mg PO BID Qty: 14 RF: 0 prednisone 20 mg tablet 60 mg PO DAILY 5 Days Qty: 15 RF: 0 No Action aspirin [Aspir-81] 81 MG tablet,delayed release (DR/EC) 81 mg PO HS RF: 0 trazodone 50 MG tablet 50 mg PO DAILY RF: 0 ipratropium-albuterol 3 ML solution for nebulization 1 inh Inhalation Q4H PRN PRNRF: 0 Combivent Respimat 120 PUFF mist 2 inh Inhalation Q4H PRN PRNRF: 0 losartan 50 MG tablet 100 mg PO DAILY Qty: 0 RF: 0 metoprolol succinate 100 MG tablet extended release 24 hr 50 mg PO DAILY RF: 0 montelukast 10 mg Tablet 5 mg PO DAILY RF: 0 atorvastatin 40 mg tablet 40 mg PO DAILY RF: 0 pantoprazole 20 mg Tablet,Delayed Release (Dr/Ec) 20 mg PO DAILY RF: 0 metformin 1,000 mg Tablet 1,000 mg PO BID RF: 0 Eliquis 5 mg Tablet 5 mg PO BID RF: 0 Discharge Instructions Instructions: COPD (Chronic Obstructive Pulmonary Disease) (ED) Additional Instructions: Take antibiotic as prescribed Yogurt daily while on antibiotic Prednisone until completed Recheck with your primary care physician on Wednesday and return earlier should you have new or worsening complaints Medical Decision Making Patient appears well, he is ambulatory with oxygen saturation 98% on room air He requests discharge and I think this is reasonable CT does not show evidence of large PE, unable to evaluate for small PE I suspect patient has COPD exacerbation, GERD, bronchitis medication with doxycycline and steroids Patient will albuterol inhaler prescribed No indication for repeat troponin, negative troponin with 9 days of symptoms recheck in 24 hours recommended No pneumonia on CT Differential Diagnosis Differential Diagnosis: Bronchitis, pneumonia, COPD, pulmonary embolism Medical Records Medical records reviewed: Yes I reviewed the patient's medical records. Lab Data Lab results reviewed: Yes I reviewed the patient's lab results. HPI This 74-year-old gentleman with history of atrial fibrillation, CHF, COPD, chronic anticoagulation on Eliquis, coronary artery disease, hypertension presents with report of shortness of breath. Patient states he been coughing for the past 9 days. He denies fever or chills. Denies any calf pain or swelling. Denies hemoptysis or orthopnea. Patient has been actually sleeping through the night with the CPAP which is baseline for him. He has been using his inhaler in fact uses inhaler just prior to arrival. Has not been on steroids or antibiotics recently. Denies any recent flights, surgeries, long drives. General Date/Time Provider Initiated Documentation: 05/31/20 11:19 . Related Data Home Medications Medication Instructions Recorded Confirmed aspirin [Aspir-81] 81 mg PO HS 12/08/12 05/31/20 trazodone 50 mg PO DAILY 12/08/12 05/31/20 Combivent Respimat 2 inh INHALATION Q4H PRN PRN 03/17/14 05/31/20 ipratropium-albuterol 1 inh INHALATION Q4H PRN PRN 03/17/14 05/31/20 losartan 100 mg PO DAILY #0 03/18/14 05/31/20 metoprolol succinate 50 mg PO DAILY 05/25/17 05/31/20 montelukast 5 mg PO DAILY 01/12/19 05/31/20 Eliquis 5 mg PO BID 09/25/19 05/31/20 atorvastatin 40 mg PO DAILY 12/08/19 05/31/20 metformin 1,000 mg PO BID 12/08/19 05/31/20 pantoprazole 20 mg PO DAILY 12/08/19 05/31/20 doxycycline hyclate 100 mg PO BID #14 cap 05/31/20 prednisone 60 mg PO DAILY 5 Days #15 tab 05/31/20 Previous Rx's Medication Instructions Recorded losartan 100 mg PO DAILY #0 03/18/14 doxycycline hyclate 100 mg PO BID #14 cap 05/31/20 prednisone 60 mg PO DAILY 5 Days #15 tab 05/31/20 Allergies Allergy/AdvReac Type Severity Reaction Status Date / Time No Known Allergies Allergy Unverified 05/31/20 11:25 General Stated Complaint: SOB ABHILASH: 2 Review of Systems Narrative: Review of systems negative x7 aside from where indicated in HPI [facility] Medical History (Updated 05/31/20 @ 14:48 by PABLO Baker) Asthma Atrial fibrillation CHF (congestive heart failure) COPD (chronic obstructive pulmonary disease) Diabetes GERD (gastroesophageal reflux disease) HTN (hypertension) Myocardial infarction Surgical History History of carpal tunnel release History of coronary artery stent placement Social History Smoking/Tobacco Use Status: Former Tobacco Use Smoking risk assessment performed?: Yes Alcohol Intake: never Drug use: Never Substance use type: does not use Details: quit smoking 44 years ago Do you feel safe at home: Yes Do you feel safe in your relationship?: Yes Exam Const General: cooperative, comfortable and no acute distress HENMT Other: Moist mucous membranes Resp Effort & Inspection: normal respiratory effort Auscultation: clear to auscultation bilaterally Cardio Rate: regular rate Rhythm: regular rhythm Other: Distal pulses intact Skin General skin exam: no rashes or lesions noted Neuro General: patient alert and patient oriented x3 Extrem Other: Mild edema to ankles Course Vital Signs Vital signs: Vital Signs Temperature 37 C 05/31/20 11:17 Pulse 76 05/31/20 11:17 Respiratory Rate 17 05/31/20 11:17 Blood Pressure 175/84 H 05/31/20 11:17 Pulse Oximetry 96 05/31/20 11:17 Temperature 37 C 05/31/20 11:17 Temperature Source Skin 05/31/20 11:17 Pulse 76 05/31/20 11:17 Respiratory Rate 17 05/31/20 11:17 Respiratory Effort 05/31/20 11:27 Blood Pressure 175/84 H 05/31/20 11:17 Pulse Oximetry 96 05/31/20 11:17 Oxygen Delivery Method Room Air 05/31/20 11:17 Oxygen Flow Rate 0 05/31/20 11:17 Pain Level 0 05/31/20 11:17
[2020-05-31] MEDS: predniSONE 20 MG TAB 60 MG PO (12:10)
[2020-05-31 12:33] LABS: Abs Immature Grans 0.11 10^3/uL (0.0-0.06); Absolute Basophil Count 0.05 10^3/uL (0.0-0.2); Absolute Eosinophil Count 0.21 10^3/uL (0.0-0.7); Absolute Lymphocyte Count 1.15 10^3/uL (1.2-3.4); Absolute Monocyte Count 0.56 10^3/uL (0.1-0.8); Absolute Neutrophil Count 5.85 10^3/uL (1.2-6.7); Basophils % 0.6; Eosinophils % 2.6; HCT 46.5 % (40.0-50.0); Immature Grans % 1.4; Lymphocytes % 14.5; MCH 29.4 pg (27.0-33.0); MCHC 32.3 % (32.0-36.0); MPV 10.1 fL (8.0-11.0); Monocytes % 7.1; Neutrophils % 73.8; Nucleated RBC 0 %; Platelet Count 235 10^3/uL (130-400); RBC 5.11 10^6/uL (4.36-5.78); RDW 13.1 % (11.8-14.1); RDW-SD 43.8 fL; WBC 7.93 10^3/uL (4.4-10.8)
[2020-05-31 12:57] LABS: ALT 48 U/L (16-63); AST 24 U/L (15-37); Albumin 3.7 g/dL (3.4-5.0); Alkaline Phosphatase 125 U/L (46-116); BUN 21 mg/dL (7-18); Bilirubin, Total 0.8 mg/dL (0.2-1.0); CREATININE 0.8 mg/dL (0.70-1.30); Calcium 9.3 mg/dL (8.5-10.1); Chloride 102 mmol/L (98-107); Glucose 163 mg/dL (74-106); NT-proBNP 47 pg/mL (<300); Potassium 4.7 mmol/L (3.5-5.1); Sodium 140 mmol/L (136-145); Troponin I < 0.05 ng/mL (<0.06)
[2020-05-31 13:13] LABS: D-Dimer 955 ng/mlFEU (<500)
--- NOTE | 2020-05-31 13:58 | NUR.NOTE ---
Nursing Note: Mrs. Giraldo [phone]
[2020-05-31] MEDS: Omnipaque 350 MG/ML 100 ML BTL IJ (14:18)
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
[2020-05-31] MEDS: Normal Saline - Diluent 50 ML VIAL IV (14:19)
--- NOTE | 2020-05-31 15:09 | NUR.NOTE ---
Nursing Note: Mrs. Giraldo aware that her is being discharged. Malinda ESPANA
[2020-06-01 11:39] LABS: COVID-19 RT-PCR UVMMC Result Negative (Negative)
== END 2020-05-31 15:35 | disposition home or self-care (01) ==
PROVIDERS: Emergency Provider Physician Assistant
DX: J44.1 Chronic obstructive pulmonary disease with (acute) exacerbation (principal); Z03.818 Encounter for observation for suspected exposure to other biological agents ruled out
CPT/HCPCS: 36415; 71275; 80053; 93005; 99285; U0003; 71045; 83880; 84484; 85025; 85379; 93010; 99284; J3490; J7512

== ENCOUNTER 2021-05-29 09:41 | Outpatient (RCR) | payer MEDICARE, SELFPAY ==
[2021-05-29 10:33] LABS: Abs Immature Grans 0.02 10^3/uL (0.0-0.06); HCT 26.3 % (40.0-50.0); HGB 8.2 g/dL (13.5-17.5); MCH 26.5 pg (27.0-33.0); MCHC 31.2 % (32.0-36.0); MCV 85.1 fL (80-95); MPV 10.2 fL (8.0-11.0); Nucleated RBC 0 %; RBC 3.09 10^6/uL (4.36-5.78); RDW 14.8 % (11.8-14.1); RDW-SD 45.8 fL
[2021-05-29 10:45] LABS: ALT 26 U/L (16-63); AST 14 U/L (15-37); Alkaline Phosphatase 102 U/L (46-116); Anion Gap 5.6 mmol/L (3-11); BUN 14 mg/dL (7-18); Bilirubin, Total 0.5 mg/dL (0.2-1.0); CO2 31.4 mmol/L (21.0-32.0); Calcium 9.3 mg/dL (8.5-10.1); Chloride 104 mmol/L (98-107); Glucose 115 mg/dL (74-106); LDH 384 U/L (85-227); Potassium 4.1 mmol/L (3.5-5.1); Sodium 141 mmol/L (136-145); Total Protein 6.1 g/dL (6.4-8.2); Uric Acid 2.6 mg/dL (3.5-7.2)
[2021-05-29 10:56] LABS: Absolute Lymphocyte Count 0.58 10^3/uL (1.2-3.4); Absolute Monocyte Count 0.18 10^3/uL (0.1-0.8); Absolute Neutrophil Count 0.61 10^3/uL (1.2-6.7); Atypical Lymphocytes % 2; Bands % 3; Platelet Count 284 10^3/uL (130-400)
[2021-05-29 10:57] LABS: Absolute Basophil Count 0.03 10^3/uL (0.0-0.2); Absolute Eosinophil Count 0.18 10^3/uL (0.0-0.7); Diff Comment Manual Differential; Hypochromasia 1+; Metamyelocytes % 2; Polychromasia Present
== END 2021-06-12 23:59 | disposition home or self-care (01) ==
LOC: INF 09:41
PROVIDERS: Visit Provider Internal Medicine Hematology & Oncology
DX: C83.38 Diffuse large B-cell lymphoma, lymph nodes of multiple sites (principal)
CPT/HCPCS: 36415; 80053; 83615; 84550; 85025

== ENCOUNTER 2021-06-12 08:48 | Outpatient (CLI) | payer MEDICARE, SELFPAY ==
[2021-06-12 08:51] LABS: Abs Immature Grans 0.17 10^3/uL (0.0-0.06); Absolute Basophil Count 0.07 10^3/uL (0.0-0.2); Absolute Eosinophil Count 0.31 10^3/uL (0.0-0.7); Absolute Lymphocyte Count 1.12 10^3/uL (1.2-3.4); Absolute Monocyte Count 1.04 10^3/uL (0.1-0.8); Absolute Neutrophil Count 5.51 10^3/uL (1.2-6.7); Basophils % 0.9; Eosinophils % 3.8; HCT 31.5 % (40.0-50.0); HGB 9.1 g/dL (13.5-17.5); Immature Grans % 2.1; Lymphocytes % 13.6; MCHC 28.9 % (32.0-36.0); MPV 9.4 fL (8.0-11.0); Monocytes % 12.7; Neutrophils % 66.9; Nucleated RBC 0 %; Platelet Count 466 10^3/uL (130-400); RDW-SD 57.5 fL; WBC 8.22 10^3/uL (4.4-10.8)
[2021-06-12 09:05] LABS: ALT 22 U/L (16-63); AST 15 U/L (15-37); Albumin 3.4 g/dL (3.4-5.0); Alkaline Phosphatase 104 U/L (46-116); Anion Gap 6.7 mmol/L (3-11); BUN 13 mg/dL (7-18); Bilirubin, Total 0.3 mg/dL (0.2-1.0); CO2 28.3 mmol/L (21.0-32.0); CREATININE 0.9 mg/dL (0.70-1.30); Calcium 8.5 mg/dL (8.5-10.1); Chloride 106 mmol/L (98-107); Glucose 168 mg/dL (74-106); LDH 220 U/L (85-227); Potassium 4.5 mmol/L (3.5-5.1); Sodium 141 mmol/L (136-145); Total Protein 6.5 g/dL (6.4-8.2); Uric Acid 2.6 mg/dL (3.5-7.2)
== END 2021-06-12 08:49 | disposition home or self-care (01) ==
LOC: LBO 08:51
PROVIDERS: Visit Provider Internal Medicine Hematology & Oncology
DX: C83.36 Diffuse large B-cell lymphoma, intrapelvic lymph nodes (principal)
CPT/HCPCS: 36415; 80053; 83615; 84550; 85025

== ENCOUNTER 2021-07-03 02:44 | Outpatient (CLI) | payer MEDICARE, SELFPAY ==
[2021-07-03 08:50] LABS: Abs Immature Grans 0.04 10^3/uL (0.0-0.06); Absolute Basophil Count 0.06 10^3/uL (0.0-0.2); Absolute Lymphocyte Count 0.75 10^3/uL (1.2-3.4); Absolute Neutrophil Count 3.09 10^3/uL (1.2-6.7); Basophils % 1.3; Eosinophils % 2.1; HCT 30.4 % (40.0-50.0); HGB 8.9 g/dL (13.5-17.5); Immature Grans % 0.8; Lymphocytes % 15.8; MCH 25.7 pg (27.0-33.0); MCHC 29.3 % (32.0-36.0); MCV 87.9 fL (80-95); MPV 10.3 fL (8.0-11.0); Monocytes % 14.8; Neutrophils % 65.2; Platelet Count 343 10^3/uL (130-400); RBC 3.46 10^6/uL (4.36-5.78); RDW 17.2 % (11.8-14.1); RDW-SD 55.5 fL; WBC 4.74 10^3/uL (4.4-10.8)
[2021-07-03 08:57] LABS: ALT 22 U/L (16-63); AST 15 U/L (15-37); Albumin 3.6 g/dL (3.4-5.0); Alkaline Phosphatase 86 U/L (46-116); Anion Gap 6.1 mmol/L (3-11); BUN 20 mg/dL (7-18); Bilirubin, Total 0.5 mg/dL (0.2-1.0); CO2 28.9 mmol/L (21.0-32.0); CREATININE 0.8 mg/dL (0.70-1.30); Calcium 9.1 mg/dL (8.5-10.1); Chloride 103 mmol/L (98-107); Glucose 170 mg/dL (74-106); LDH 167 U/L (85-227); Potassium 4.3 mmol/L (3.5-5.1); Sodium 138 mmol/L (136-145); Total Protein 6.6 g/dL (6.4-8.2)
[2021-07-03 12:08] LABS: Ferritin 39 ng/mL (26-388)
== END 2021-07-03 02:45 | disposition home or self-care (01) ==
LOC: LBO 02:44
PROVIDERS: Visit Provider Internal Medicine Hematology & Oncology
DX: C83.38 Diffuse large B-cell lymphoma, lymph nodes of multiple sites (principal)
CPT/HCPCS: 36415; 80053; 82728; 83615; 85025

== ENCOUNTER 2021-07-24 08:52 | Outpatient (CLI) | payer MEDICARE, SELFPAY ==
[2021-07-24 08:43] LABS: Abs Immature Grans 0.05 10^3/uL (0.0-0.06); Absolute Basophil Count 0.08 10^3/uL (0.0-0.2); Absolute Lymphocyte Count 0.73 10^3/uL (1.2-3.4); Absolute Monocyte Count 0.68 10^3/uL (0.1-0.8); Absolute Neutrophil Count 4.27 10^3/uL (1.2-6.7); Basophils % 1.3; Eosinophils % 6.4; HCT 32.2 % (40.0-50.0); HGB 9.6 g/dL (13.5-17.5); Immature Grans % 0.8; Lymphocytes % 11.8; MCH 25.3 pg (27.0-33.0); MCHC 29.8 % (32.0-36.0); MCV 85 fL (80-95); Neutrophils % 68.7; Platelet Count 332 10^3/uL (130-400); RBC 3.79 10^6/uL (4.36-5.78); RDW 17.3 % (11.8-14.1); RDW-SD 53.4 fL; WBC 6.21 10^3/uL (4.4-10.8)
[2021-07-24 09:06] LABS: ALT 22 U/L (16-63); AST 18 U/L (15-37); Albumin 3.6 g/dL (3.4-5.0); Alkaline Phosphatase 106 U/L (46-116); Anion Gap 7.9 mmol/L (3-11); BUN 23 mg/dL (7-18); Bilirubin, Total 0.4 mg/dL (0.2-1.0); CO2 28.1 mmol/L (21.0-32.0); CREATININE 0.9 mg/dL (0.70-1.30); Calcium 9.1 mg/dL (8.5-10.1); Chloride 102 mmol/L (98-107); Glucose 180 mg/dL (74-106); LDH 154 U/L (85-227); Potassium 4.5 mmol/L (3.5-5.1); Sodium 138 mmol/L (136-145); Total Protein 6.7 g/dL (6.4-8.2)
== END 2021-07-24 08:53 | disposition home or self-care (01) ==
LOC: LBO 08:55
PROVIDERS: Visit Provider Internal Medicine Hematology & Oncology
DX: C83.38 Diffuse large B-cell lymphoma, lymph nodes of multiple sites (principal)
CPT/HCPCS: 36415; 80053; 83615; 85025

== ENCOUNTER 2021-08-14 18:59 | Outpatient (CLI) | payer MEDICARE, SELFPAY ==
[2021-08-14 07:34] LABS: Abs Immature Grans 0.03 10^3/uL (0.0-0.06); Absolute Basophil Count 0.08 10^3/uL (0.0-0.2); Absolute Eosinophil Count 0.32 10^3/uL (0.0-0.7); Absolute Lymphocyte Count 0.57 10^3/uL (1.2-3.4); Absolute Monocyte Count 0.96 10^3/uL (0.1-0.8); Absolute Neutrophil Count 6.34 10^3/uL (1.2-6.7); Eosinophils % 3.9; HCT 32.9 % (40.0-50.0); HGB 10.1 g/dL (13.5-17.5); Immature Grans % 0.4; Lymphocytes % 6.9; MCH 25.7 pg (27.0-33.0); MCHC 30.7 % (32.0-36.0); MCV 84 fL (80-95); MPV 9.7 fL (8.0-11.0); Monocytes % 11.6; Neutrophils % 76.2; Platelet Count 270 10^3/uL (130-400); RBC 3.93 10^6/uL (4.36-5.78); RDW 18.4 % (11.8-14.1); RDW-SD 55.5 fL
[2021-08-14 07:49] LABS: ALT 24 U/L (16-63); AST 7 U/L (15-37); Albumin 3.8 g/dL (3.4-5.0); Alkaline Phosphatase 89 U/L (46-116); Anion Gap 9.9 mmol/L (3-11); BUN 17 mg/dL (7-18); Bilirubin, Total 0.4 mg/dL (0.2-1.0); CO2 27.1 mmol/L (21.0-32.0); CREATININE 0.9 mg/dL (0.70-1.30); Calcium 8.7 mg/dL (8.5-10.1); Chloride 104 mmol/L (98-107); Glucose 167 mg/dL (74-106); LDH 152 U/L (85-227); Potassium 4.4 mmol/L (3.5-5.1); Sodium 141 mmol/L (136-145); Total Protein 6.8 g/dL (6.4-8.2)
== END 2021-08-14 19:00 | disposition home or self-care (01) ==
PROVIDERS: Visit Provider Internal Medicine Hematology & Oncology
DX: C83.38 Diffuse large B-cell lymphoma, lymph nodes of multiple sites (principal)
CPT/HCPCS: 36415; 80053; 83615; 85025

== ENCOUNTER 2021-09-04 03:19 | Outpatient (CLI) | payer MEDICARE, SELFPAY ==
[2021-09-04 07:44] LABS: Abs Immature Grans 0.06 10^3/uL (0.0-0.06); Absolute Lymphocyte Count 0.82 10^3/uL (1.2-3.4); Absolute Monocyte Count 0.73 10^3/uL (0.1-0.8); Absolute Neutrophil Count 3.27 10^3/uL (1.2-6.7); HCT 31.5 % (40.0-50.0); HGB 9.8 g/dL (13.5-17.5); Immature Grans % 1.2; Lymphocytes % 16.1; MCH 25.8 pg (27.0-33.0); MCHC 31.1 % (32.0-36.0); MCV 83 fL (80-95); MPV 9.7 fL (8.0-11.0); Monocytes % 14.4; Neutrophils % 64.3; Platelet Count 414 10^3/uL (130-400); RDW 18.6 % (11.8-14.1); RDW-SD 55.2 fL; WBC 5.08 10^3/uL (4.4-10.8)
[2021-09-04 08:08] LABS: ALT 17 U/L (16-63); AST 14 U/L (15-37); Albumin 3.3 g/dL (3.4-5.0); Alkaline Phosphatase 90 U/L (46-116); Anion Gap 9.3 mmol/L (3-11); BUN 20 mg/dL (7-18); Bilirubin, Total 0.3 mg/dL (0.2-1.0); CO2 25.7 mmol/L (21.0-32.0); CREATININE 0.9 mg/dL (0.70-1.30); Calcium 9.1 mg/dL (8.5-10.1); Chloride 101 mmol/L (98-107); Glucose 185 mg/dL (74-106); LDH 143 U/L (85-227); Potassium 4.5 mmol/L (3.5-5.1); Sodium 136 mmol/L (136-145); Total Protein 6.6 g/dL (6.4-8.2)
== END 2021-09-04 03:20 | disposition home or self-care (01) ==
LOC: LBO 03:19
PROVIDERS: Visit Provider Internal Medicine Hematology & Oncology
DX: C83.38 Diffuse large B-cell lymphoma, lymph nodes of multiple sites (principal)
CPT/HCPCS: 36415; 80053; 83615; 85025

== ENCOUNTER 2021-10-23 01:34 | Outpatient (CLI) | payer MEDICARE, SELFPAY ==
[2021-10-23 07:56] LABS: Abs Immature Grans 0.01 10^3/uL (0.0-0.06); Absolute Basophil Count 0.02 10^3/uL (0.0-0.2); Absolute Eosinophil Count 0.67 10^3/uL (0.0-0.7); Absolute Lymphocyte Count 0.92 10^3/uL (1.2-3.4); Absolute Monocyte Count 0.68 10^3/uL (0.1-0.8); Absolute Neutrophil Count 3.09 10^3/uL (1.2-6.7); Basophils % 0.4; Eosinophils % 12.4; HCT 33.5 % (40.0-50.0); HGB 10.4 g/dL (13.5-17.5); Immature Grans % 0.2; Lymphocytes % 17.1; MCH 26.4 pg (27.0-33.0); MCV 85 fL (80-95); Monocytes % 12.6; Neutrophils % 57.3; Platelet Count 191 10^3/uL (130-400); RBC 3.94 10^6/uL (4.36-5.78); RDW-SD 53.1 fL; WBC 5.39 10^3/uL (4.4-10.8)
[2021-10-23 08:12] LABS: ALT 29 U/L (16-63); AST 21 U/L (15-37); Albumin 3.6 g/dL (3.4-5.0); Alkaline Phosphatase 78 U/L (46-116); BUN 14 mg/dL (7-18); Bilirubin, Total 0.6 mg/dL (0.2-1.0); CREATININE 0.9 mg/dL (0.70-1.30); Chloride 105 mmol/L (98-107); Glucose 137 mg/dL (74-106); LDH 161 U/L (85-227); Potassium 4.4 mmol/L (3.5-5.1); Sodium 142 mmol/L (136-145); Total Protein 6.6 g/dL (6.4-8.2)
== END 2021-10-23 01:35 | disposition home or self-care (01) ==
LOC: LBO 01:34
PROVIDERS: Visit Provider Internal Medicine Hematology & Oncology
DX: C83.38 Diffuse large B-cell lymphoma, lymph nodes of multiple sites (principal)
CPT/HCPCS: 36415; 80053; 83615; 85025

== ENCOUNTER 2021-11-20 12:38 | Outpatient (CLI) | payer MEDICARE, SELFPAY ==
[2021-11-20 10:42] LABS: Abs Immature Grans 0.02 10^3/uL (0.0-0.06); Absolute Basophil Count 0.02 10^3/uL (0.0-0.2); Absolute Lymphocyte Count 1.16 10^3/uL (1.2-3.4); Absolute Monocyte Count 0.63 10^3/uL (0.1-0.8); Absolute Neutrophil Count 3.37 10^3/uL (1.2-6.7); Basophils % 0.4; Eosinophils % 5.5; HCT 35.8 % (40.0-50.0); HGB 11.1 g/dL (13.5-17.5); Immature Grans % 0.4; Lymphocytes % 21.1; MCH 26.2 pg (27.0-33.0); MCV 84 fL (80-95); MPV 9.6 fL (8.0-11.0); Monocytes % 11.5; Neutrophils % 61.1; Platelet Count 203 10^3/uL (130-400); RBC 4.24 10^6/uL (4.36-5.78); RDW 14.4 % (11.8-14.1); RDW-SD 44.4 fL
[2021-11-20 10:58] LABS: ALT 20 U/L (16-63); AST 16 U/L (15-37); Albumin 3.7 g/dL (3.4-5.0); Alkaline Phosphatase 79 U/L (46-116); Anion Gap 7.8 mmol/L (3-11); BUN 23 mg/dL (7-18); Bilirubin, Total 0.6 mg/dL (0.2-1.0); CO2 29.2 mmol/L (21.0-32.0); CREATININE 0.9 mg/dL (0.70-1.30); Calcium 9.3 mg/dL (8.5-10.1); Chloride 102 mmol/L (98-107); Estimated GFR 89.07 (mL/min/1.73m2); Glucose 133 mg/dL (74-106); LDH 163 U/L (85-227); Potassium 4.3 mmol/L (3.5-5.1); Sodium 139 mmol/L (136-145)
== END 2021-11-20 12:39 | disposition home or self-care (01) ==
LOC: LBO 12:39
PROVIDERS: Visit Provider Internal Medicine Hematology & Oncology
DX: C83.38 Diffuse large B-cell lymphoma, lymph nodes of multiple sites (principal)
CPT/HCPCS: 36415; 80053; 83615; 85025

== ENCOUNTER 2021-11-27 03:24 | Outpatient (RCR) | payer MEDICARE, SELFPAY ==
[2021-11-27] MEDS: Normal Saline Flush 10 ML SYR IVP (08:01)
[2021-11-27 08:31] LABS: Abs Immature Grans 0.03 10^3/uL (0.0-0.06); Absolute Basophil Count 0.02 10^3/uL (0.0-0.2); Absolute Eosinophil Count 0.31 10^3/uL (0.0-0.7); Absolute Lymphocyte Count 0.87 10^3/uL (1.2-3.4); Absolute Monocyte Count 0.61 10^3/uL (0.1-0.8); Absolute Neutrophil Count 3.22 10^3/uL (1.2-6.7); Basophils % 0.4; Eosinophils % 6.1; HCT 33.9 % (40.0-50.0); HGB 10.9 g/dL (13.5-17.5); Immature Grans % 0.6; Lymphocytes % 17.2; MCH 26.5 pg (27.0-33.0); MCHC 32.2 % (32.0-36.0); MCV 82 fL (80-95); MPV 10.6 fL (8.0-11.0); Monocytes % 12.1; Neutrophils % 63.6; Platelet Count 218 10^3/uL (130-400); RBC 4.12 10^6/uL (4.36-5.78); RDW 14.3 % (11.8-14.1); WBC 5.06 10^3/uL (4.4-10.8)
[2021-11-27 08:57] LABS: ALT 21 U/L (16-63); AST 18 U/L (15-37); Albumin 3.5 g/dL (3.4-5.0); Alkaline Phosphatase 90 U/L (46-116); Anion Gap 6.6 mmol/L (3-11); BUN 18 mg/dL (7-18); Bilirubin, Total 0.5 mg/dL (0.2-1.0); CO2 28.4 mmol/L (21.0-32.0); CREATININE 0.9 mg/dL (0.70-1.30); Chloride 105 mmol/L (98-107); Estimated GFR 89.07 (mL/min/1.73m2); Glucose 174 mg/dL (74-106); LDH 186 U/L (85-227); Potassium 4.1 mmol/L (3.5-5.1); Sodium 140 mmol/L (136-145); Total Protein 6.8 g/dL (6.4-8.2)
[2021-11-27 13:21] LABS: Magnesium 1.7 mg/dL (1.8-2.4); PHOSPHORUS 4.2 mg/dL (2.6-4.7)
== END 2021-12-12 23:59 | disposition home or self-care (01) ==
LOC: INF 03:24
PROVIDERS: Visit Provider Internal Medicine Hematology & Oncology
DX: C83.38 Diffuse large B-cell lymphoma, lymph nodes of multiple sites (principal); Z45.2 Encounter for adjustment and management of vascular access device
CPT/HCPCS: 36591; 80053; 83615; 83735; 84100; 85025

== ENCOUNTER 2021-12-25 02:25 | Outpatient (RCR) | payer MEDICARE, SELFPAY ==
[2021-12-25] MEDS: Normal Saline Flush 10 ML SYR IVP (08:31)
[2021-12-25 08:43] LABS: Abs Immature Grans 0.02 10^3/uL (0.0-0.06); Absolute Basophil Count 0.05 10^3/uL (0.0-0.2); Absolute Eosinophil Count 0.89 10^3/uL (0.0-0.7); Absolute Lymphocyte Count 0.46 10^3/uL (1.2-3.4); Absolute Monocyte Count 0.67 10^3/uL (0.1-0.8); Absolute Neutrophil Count 2.36 10^3/uL (1.2-6.7); Basophils % 1.1; HCT 36.4 % (40.0-50.0); HGB 11.5 g/dL (13.5-17.5); Immature Grans % 0.4; Lymphocytes % 10.3; MCHC 31.6 % (32.0-36.0); MCV 82 fL (80-95); MPV 9.9 fL (8.0-11.0); Monocytes % 15.1; Neutrophils % 53.1; Platelet Count 186 10^3/uL (130-400); RBC 4.42 10^6/uL (4.36-5.78); RDW 15.4 % (11.8-14.1); RDW-SD 43.8 fL; WBC 4.45 10^3/uL (4.4-10.8)
[2021-12-25 08:58] LABS: ALT 26 U/L (16-63); AST 16 U/L (15-37); Albumin 3.5 g/dL (3.4-5.0); Alkaline Phosphatase 93 U/L (46-116); BUN 19 mg/dL (7-18); Bilirubin, Total 0.6 mg/dL (0.2-1.0); CREATININE 0.9 mg/dL (0.70-1.30); Calcium 9.1 mg/dL (8.5-10.1); Chloride 103 mmol/L (98-107); Estimated GFR 88.51 (mL/min/1.73m2); Glucose 266 mg/dL (74-106); LDH 209 U/L (85-227); Potassium 4.5 mmol/L (3.5-5.1); Sodium 138 mmol/L (136-145); Total Protein 6.9 g/dL (6.4-8.2)
== END 2022-01-12 23:59 | disposition home or self-care (01) ==
LOC: INF 02:25
PROVIDERS: Visit Provider Internal Medicine Hematology & Oncology
DX: C83.38 Diffuse large B-cell lymphoma, lymph nodes of multiple sites (principal); Z45.2 Encounter for adjustment and management of vascular access device
CPT/HCPCS: 36591; 80053; 83615; 85025

== ENCOUNTER 2022-01-22 03:27 | Outpatient (RCR) | payer MEDICARE, SELFPAY ==
[2022-01-22] MEDS: Normal Saline Flush 10 ML SYR IVP (08:21)
[2022-01-22 08:47] LABS: Abs Immature Grans 0.02 10^3/uL (0.0-0.06); Absolute Basophil Count 0.04 10^3/uL (0.0-0.2); Absolute Eosinophil Count 0.72 10^3/uL (0.0-0.7); Absolute Lymphocyte Count 0.52 10^3/uL (1.2-3.4); Absolute Monocyte Count 0.73 10^3/uL (0.1-0.8); Absolute Neutrophil Count 3.93 10^3/uL (1.2-6.7); Basophils % 0.7; Eosinophils % 12.1; HCT 35.8 % (40.0-50.0); HGB 11.3 g/dL (13.5-17.5); Immature Grans % 0.3; Lymphocytes % 8.7; MCH 26.5 pg (27.0-33.0); MCHC 31.6 % (32.0-36.0); MCV 84 fL (80-95); MPV 9.4 fL (8.0-11.0); Monocytes % 12.2; Platelet Count 187 10^3/uL (130-400); RBC 4.26 10^6/uL (4.36-5.78); RDW 17.6 % (11.8-14.1); RDW-SD 53.1 fL; WBC 5.96 10^3/uL (4.4-10.8)
[2022-01-22 09:01] LABS: ALT 25 U/L (16-63); AST 13 U/L (15-37); Albumin 3.5 g/dL (3.4-5.0); Alkaline Phosphatase 101 U/L (46-116); Anion Gap 6.6 mmol/L (3-11); BUN 13 mg/dL (7-18); Bilirubin, Total 0.7 mg/dL (0.2-1.0); CO2 29.4 mmol/L (21.0-32.0); CREATININE 0.9 mg/dL (0.70-1.30); Calcium 9.4 mg/dL (8.5-10.1); Chloride 104 mmol/L (98-107); Estimated GFR 88.51 (mL/min/1.73m2); Glucose 181 mg/dL (74-106); LDH 275 U/L (85-227); Magnesium 1.6 mg/dL (1.8-2.4); Potassium 4.5 mmol/L (3.5-5.1); Sodium 140 mmol/L (136-145); Total Protein 6.8 g/dL (6.4-8.2); Uric Acid 3.8 mg/dL (3.5-7.2)
[2022-01-23 10:42] LABS: HBs Antibody, Quant <3.1 mIU/mL (See Note); Hepatitis B Surface Ab Negative (See Note)
[2022-01-23 10:47] LABS: Hep B Core Antibody Negative (Negative)
[2022-01-23 11:02] LABS: Hepatitis Be Antigen Negative (Negative)
== END 2022-02-11 23:59 | disposition home or self-care (01) ==
LOC: INF 03:27
PROVIDERS: Visit Provider Internal Medicine Hematology & Oncology
DX: C83.38 Diffuse large B-cell lymphoma, lymph nodes of multiple sites (principal); Z45.2 Encounter for adjustment and management of vascular access device
CPT/HCPCS: 36591; 80053; 86704; 86706; 83615; 83735; 84100; 84550; 85025; 87350

== ENCOUNTER 2022-03-12 01:54 | Outpatient (RCR) | payer MEDICARE, SELFPAY ==
[2022-03-12] MEDS: Normal Saline Flush 10 ML SYR IVP (14:50)
[2022-03-12 15:03] LABS: Abs Immature Grans 0.21 10^3/uL (0.0-0.06); Absolute Basophil Count 0.01 10^3/uL (0.0-0.2); Absolute Lymphocyte Count 0.19 10^3/uL (1.2-3.4); Absolute Monocyte Count 0.16 10^3/uL (0.1-0.8); Absolute Neutrophil Count 4.25 10^3/uL (1.2-6.7); Basophils % 0.2; HCT 33.3 % (40.0-50.0); HGB 11.6 g/dL (13.5-17.5); Immature Grans % 4.4; Lymphocytes % 3.9; MCH 28.6 pg (27.0-33.0); MCHC 34.8 % (32.0-36.0); MCV 82 fL (80-95); MPV 9.7 fL (8.0-11.0); Monocytes % 3.3; Neutrophils % 88.2; Platelet Count 143 10^3/uL (130-400); RBC 4.06 10^6/uL (4.36-5.78); RDW 18.6 % (11.8-14.1); RDW-SD 54.7 fL; WBC 4.82 10^3/uL (4.4-10.8)
[2022-03-12 15:19] LABS: ALT 46 U/L (16-63); AST 29 U/L (15-37); Albumin 2.7 g/dL (3.4-5.0); Alkaline Phosphatase 131 U/L (46-116); Anion Gap 7.9 mmol/L (3-11); BUN 28 mg/dL (7-18); Bilirubin, Total 0.9 mg/dL (0.2-1.0); CO2 27.1 mmol/L (21.0-32.0); CREATININE 0.7 mg/dL (0.70-1.30); Calcium 8.5 mg/dL (8.5-10.1); Chloride 96 mmol/L (98-107); Estimated GFR 95.49 (mL/min/1.73m2); Glucose 405 mg/dL (74-106); LDH 757 U/L (85-227); Potassium 4.3 mmol/L (3.5-5.1); Sodium 131 mmol/L (136-145); Total Protein 5.8 g/dL (6.4-8.2); Uric Acid 2.6 mg/dL (3.5-7.2)
== END 2022-03-14 23:59 | disposition home or self-care (01) ==
LOC: INF 01:54
PROVIDERS: Visit Provider Internal Medicine Hematology & Oncology
DX: C83.38 Diffuse large B-cell lymphoma, lymph nodes of multiple sites (principal); Z45.2 Encounter for adjustment and management of vascular access device
CPT/HCPCS: 36591; 80053; 83615; 84550; 85025

== ENCOUNTER 2022-04-16 02:54 | Outpatient (RCR) | payer MEDICARE, SELFPAY ==
[2022-04-16 08:53] LABS: Abs Immature Grans 0.17 10^3/uL (0.0-0.06); Absolute Basophil Count 0.04 10^3/uL (0.0-0.2); Absolute Eosinophil Count 0.03 10^3/uL (0.0-0.7); Absolute Lymphocyte Count 0.47 10^3/uL (1.2-3.4); Absolute Monocyte Count 0.18 10^3/uL (0.1-0.8); Absolute Neutrophil Count 6.05 10^3/uL (1.2-6.7); Basophils % 0.6; Eosinophils % 0.4; HCT 33.2 % (40.0-50.0); Immature Grans % 2.4; Lymphocytes % 6.8; MCH 30.6 pg (27.0-33.0); MCHC 33.1 % (32.0-36.0); MCV 92 fL (80-95); MPV 10.1 fL (8.0-11.0); Monocytes % 2.6; Neutrophils % 87.2; Nucleated RBC 0.3 % (0.0-0.3); Platelet Count 194 10^3/uL (130-400); RDW 23.2 % (11.8-14.1); RDW-SD 78.1 fL; WBC 6.94 10^3/uL (4.4-10.8)
[2022-04-16 09:04] LABS: Anisocytosis 2+; Diff Comment RBC Morph Reviewed
[2022-04-16 09:14] LABS: ALT 21 U/L (16-63); AST 17 U/L (15-37); Albumin 2.6 g/dL (3.4-5.0); Alkaline Phosphatase 83 U/L (46-116); Anion Gap 5.4 mmol/L (3-11); BUN 25 mg/dL (7-18); Bilirubin, Total 1.2 mg/dL (0.2-1.0); CO2 29.6 mmol/L (21.0-32.0); CREATININE 0.7 mg/dL (0.70-1.30); Calcium 8.6 mg/dL (8.5-10.1); Chloride 99 mmol/L (98-107); Estimated GFR 95.49 (mL/min/1.73m2); Glucose 203 mg/dL (74-106); LDH 471 U/L (85-227); Potassium 3.9 mmol/L (3.5-5.1); Sodium 134 mmol/L (136-145); Total Protein 5.5 g/dL (6.4-8.2); Uric Acid 2.2 mg/dL (3.5-7.2)
[2022-04-16] MEDS: Normal Saline Flush 10 ML SYR IVP (10:11)
[2022-04-16] MEDS: Heparin 500 UNITS/5 ML SYRINGE IV (10:22)
== END 2022-05-04 23:59 | disposition home or self-care (01) ==
LOC: INF 02:54
PROVIDERS: Visit Provider Internal Medicine Hematology & Oncology
DX: C83.38 Diffuse large B-cell lymphoma, lymph nodes of multiple sites (principal)
CPT/HCPCS: 36591; 80053; 83615; 84550; 85025